=== PATIENT | male | born 1960 | race Two or more races ===

== ENCOUNTER 2017-03-17 21:01 | Emergency (ER) | payer MEDICARE, MEDICAID ==
[~2017-03-17] VITALS: Ht 170.2 cm; Wt 59.0 kg
[2017-03-18 02:47] LABS: Urine Bacteria None Seen /hpf (None Seen); Urine WBC None Seen /hpf (0 - 3)
[2017-03-18 03:02] LABS: Basophils # (auto) 0.1 uL; Basophils % (auto) 0.7 % (0.0-2.0); Eosinophils # (auto) 0.3 uL; Eosinophils % (auto) 2.4 % (0.0-7.0); Hemoglobin 16.6 g/dL (13.5-17.5); Lymphocytes # (auto) 2.6 uL; Lymphocytes % (auto) 24.2 % (10.0-50.0); Mean Corpuscular Hemoglobin 33.9 pg (28.0-32.0); Mean Corpuscular Hgb Conc. 35.4 g/dL (32.0-36.0); Mean Corpuscular Volume 95.8 fL (80.0-100.0); Monocytes # (auto) 1.1 uL; Monocytes % (auto) 10.2 % (0.0-12.0); Neutrophils # (auto) 6.6 uL; Neutrophils % (auto) 62.5 % (37.0-80.0); Nucleated Red Blood Cells % 0.1 %; Platelet Count (auto) 241 10^3/uL (140-450); Red Cell Distribution Width 12.6 % (11.8-14.3); White Blood Cell 10.6 10^3/uL (4.4-10.8)
[2017-03-18 03:23] LABS: Albumin 2.9 g/dL (3.4-5.0); BUN/Creatinine Ratio 19.2; Calcium 8.2 mg/dL (8.5-10.1)
[2017-03-18 03:25] LABS: Potassium 2.8 mmol/L (3.5-5.1)
[2017-03-18 03:27] LABS: Bilirubin, Total 1.3 mg/dL (0.2-1.0); Total Protein 9.5 g/dL (6.4-8.2)
[2017-03-18 04:20] LABS: Urine Specific Gravity 1.005 (1.001-1.035)
[2017-03-18 04:21] LABS: Urine Blood Trace /uL (Negative)
[2017-03-18 04:28] LABS: Urine Mucus FEW (None Seen)
[2017-03-18] MEDS ORDERED: METOCLOPRAMIDE HCL 5MG/ml INJ 2ml VIAL IV ONE (08:30)
[2017-03-18] MEDS ORDERED: KETOROLAC TROMETH 30 MG/ML 1ML VIAL IV ONE (08:30)
[2017-03-18] MEDS ORDERED: POTASSIUM CHL 10% (20 MEQ/15ML) 15ml ORAL SOLN PO ONE (09:00)
[2017-03-18 09:50] VITALS: BP 125/75
== END 2017-03-18 10:03 | disposition home or self-care (01) ==
LOC: ER 21:01 → EDBD 21:01 → ER 03-18 09:58
DX: S20.212A Contusion of left front wall of thorax, initial encounter (principal); R74.8 Abnormal levels of other serum enzymes; K76.0 Fatty (change of) liver, not elsewhere classified; E87.6 Hypokalemia; E44.0 Moderate protein-calorie malnutrition; J92.0 Pleural plaque with presence of asbestos; Z77.090 Contact with and (suspected) exposure to asbestos; F17.210 Nicotine dependence, cigarettes, uncomplicated
CPT/HCPCS: 36415; 71046; 71101; 74176; 80053; 81001; 85025; 96374; 96375; 99285; J1885; J2765

== ENCOUNTER 2018-01-26 14:17 | Emergency (ER) | payer MEDICAID, MEDICARE ==
[~2018-01-26] VITALS: Ht 172.7 cm; Wt 59.0 kg
[2018-01-26] MEDS ORDERED: SODIUM CHLORIDE 0.9% 1,000 ML IV ONE ×2 (14:48)
[2018-01-26] MEDS ORDERED: THIAMINE 100mg/ml INJ (200mg/2ml VIAL) IV ONE (15:00)
[2018-01-26] MEDS ORDERED: ONDANSETRON HCL 4 MG/2 ML VIAL IV ONE (15:00)
[2018-01-26 15:27] LABS: Eosinophils # (auto) 0.1 uL; White Blood Cell 8.3 10^3/uL (4.4-10.8)
[2018-01-26 15:29] LABS: Basophils # (auto) 0.1 uL; Basophils % (auto) 0.6 % (0.0-2.0); Eosinophils % (auto) 1.3 % (0.0-7.0); Hematocrit 51.5 % (41.0-53.0); Hemoglobin 18.6 g/dL (13.5-17.5); Lymphocytes # (auto) 1.3 uL; Mean Corpuscular Hemoglobin 34.5 pg (28.0-32.0); Mean Corpuscular Volume 95.7 fL (80.0-100.0); Monocytes # (auto) 1.1 uL; Monocytes % (auto) 13.4 % (0.0-12.0); Neutrophils # (auto) 5.7 uL; Neutrophils % (auto) 68.7 % (37.0-80.0); Nucleated Red Blood Cells % 0.3 %; Platelet Count (auto) 264 10^3/uL (140-450); Red Blood Cells 5.38 10^6/uL (4.5-5.90); Red Cell Distribution Width 12.4 % (11.8-14.3)
[2018-01-26 15:43] LABS: Albumin 3.1 g/dL (3.4-5.0); Anion Gap 11 (5-15); Blood Urea Nitrogen 4 mg/dL (7-18); Calcium 8.5 mg/dL (8.5-10.1); Carbon Dioxide 21 mmol/L (21-32); Chloride 98 mmol/L (98-107); Glucose 113 mg/dL (74-106); Potassium 3.6 mmol/L (3.5-5.1); Sodium 130 mmol/L (136-145)
[2018-01-26 15:49] LABS: Alanine Aminotransferase 109 U/L (16-61); Alkaline Phosphatase 79 U/L (45-117); Aspartate Aminotransferase 189 U/L (15-37); BUN/Creatinine Ratio 7.7; Bilirubin, Total 0.6 mg/dL (0.2-1.0); GFR African American 211 mL/min; GFR Non-African American 174 mL/min; Total Protein 9.4 g/dL (6.4-8.2)
[2018-01-26 15:59] LABS: Urine WBC None Seen /hpf (0 - 3)
[2018-01-26 16:11] LABS: INR 0.98 (0.9-1.15); Partial Thromboplastin Time 30.5 sec (23.78-33.04); Prothrombin Time 10.5 sec (9.27-12.13)
[2018-01-26 16:24] LABS: Urine Bacteria NONE SEEN /hpf (None Seen); Urine Blood Negative /uL (Negative); Urine Specific Gravity 1.003 (1.001-1.035)
[2018-01-26 16:42] VITALS: BP 152/91
== END 2018-01-26 16:54 | disposition home or self-care (01) ==
LOC: EDBD 14:17 → ER 14:29
DX: J40 Bronchitis, not specified as acute or chronic (principal); F10.129 Alcohol abuse with intoxication, unspecified; R11.2 Nausea with vomiting, unspecified; F17.210 Nicotine dependence, cigarettes, uncomplicated
CPT/HCPCS: 36415; 71045; 80053; 81001; 83880; 84484; 85025; 85610; 85730; 94761; 96361; 96374; 96375; 99284; J2405; J3411

== ENCOUNTER 2020-07-07 19:54 | Emergency (ER) | payer MEDICARE ==
[~2020-07-07] VITALS: Ht 177.8 cm; Wt 77.1 kg
[2020-07-07] MEDS ORDERED: ASPirin 81 mg TAB PO ONE (20:15)
[2020-07-07 20:53] LABS: Basophils # (auto) 0.1 10 ^3/uL (0-0.2); Eosinophils # (auto) 0.3 10 ^3/uL (0-0.8); Eosinophils % (auto) 3.9 % (0.0-7.0); Hematocrit 50.1 % (41.0-53.0); Hemoglobin 17.5 g/dL (13.5-17.5); Lymphocytes # (auto) 2.8 10 ^3/uL (0.4-5.4); Lymphocytes % (auto) 33.1 % (10.0-50.0); Mean Corpuscular Hemoglobin 33.5 pg (28.0-32.0); Mean Corpuscular Hgb Conc. 34.9 g/dL (32.0-36.0); Mean Corpuscular Volume 96.1 fL (80.0-100.0); Monocytes # (auto) 0.8 10 ^3/uL (0-1.3); Neutrophils # (auto) 4.4 10 ^3/uL (1.6-8.6); Nucleated Red Blood Cells % 0.3 %; Platelet Count (auto) 274 10^3/uL (140-450); Red Blood Cells 5.21 10^6/uL (4.5-5.90); Red Cell Distribution Width 13.2 % (11.8-14.3); White Blood Cell 8.4 10^3/uL (4.4-10.8)
[2020-07-07 21:07] LABS: INR 0.98 (0.9-1.15); Partial Thromboplastin Time 28.1 sec (23.0-31.2)
[2020-07-07 21:08] LABS: Albumin 3.4 g/dL (3.4-5.0); Anion Gap 7 (5-15); Blood Urea Nitrogen 3 mg/dL (7-18); Calcium 8.9 mg/dL (8.5-10.1); Carbon Dioxide 28 mmol/L (21-32); Chloride 99 mmol/L (98-107); Glucose 96 mg/dL (74-106); Potassium 4.2 mmol/L (3.5-5.1); Sodium 134 mmol/L (136-145)
[2020-07-07 21:10] LABS: GFR African American 184 mL/min; GFR Non-African American 152 mL/min
[2020-07-07 21:17] LABS: Alanine Aminotransferase 84 U/L (16-61); Alkaline Phosphatase 78 U/L (45-117); Aspartate Aminotransferase 106 U/L (15-37); Bilirubin, Total 0.5 mg/dL (0.2-1.0); Total Protein 9.3 g/dL (6.4-8.2)
[2020-07-07 21:22] LABS: BUN/Creatinine Ratio 5.2
[2020-07-07] MEDS ORDERED: AZITHROMYCIN 500MG/ 250ML 250 ML IV ONE (22:00)
[2020-07-07] MEDS ORDERED: SODIUM CHLORIDE 0.9% 1,000 ML IV ONE (22:00)
[2020-07-07 22:42] LABS: Urine Bacteria NONE SEEN /hpf (None Seen); Urine Blood Negative /uL (Negative); Urine Specific Gravity 1.002 (1.001-1.035); Urine WBC <1 /hpf (0 - 3)
[2020-07-07 22:48] LABS: Amphetamine Screen, Urine NEGATIVE (NEGATIVE); Barbiturate Scree,Urine NEGATIVE (NEGATIVE); Benzodiazephine Screen, Urine NEGATIVE (NEGATIVE); Cannabinoid Screen, Urine NEGATIVE (NEGATIVE); Cocaine Screen, Urine NEGATIVE (NEGATIVE); Opiate Scree,Urine NEGATIVE (NEGATIVE); Phencyclidine Screen, Urine NEGATIVE (NEGATIVE)
[2020-07-07 23:05] VITALS: BP 110/69
[2020-07-08] MEDS ORDERED: ALBUTEROL SULF 2.5 MG/0.5ML(0.5%) NEB SOLN NEB ONE (00:30)
[2020-07-08] MEDS ORDERED: IPRATROPIUM BROM 0.5 MG/2.5ML INH SOL NEB ONE (00:30)
== END 2020-07-08 01:04 | disposition still patient (30) ==
LOC: ER 19:56
DX: R07.89 Other chest pain (principal); F17.210 Nicotine dependence, cigarettes, uncomplicated; F10.10 Alcohol abuse, uncomplicated; Z20.822 Contact with and (suspected) exposure to COVID-19; Y90.8 Blood alcohol level of 240 mg/100 ml or more
CPT/HCPCS: 36415; 71045; 80053; 80307; 80320; 81001; 83880; 84484; 85025; 85379; 85610; 85730; 87426; 93005; 94640; 96365; 99285; J0456; J7644

== ENCOUNTER 2020-08-25 19:43 | Inpatient (IN) | payer MEDICARE ==
[~2020-08-25] VITALS: Ht 177.8 cm; Wt 59.9 kg
[2020-08-25 20:39] LABS: Urine WBC None Seen /hpf (0 - 3)
[2020-08-25 20:53] LABS: Urine Bacteria NONE SEEN /hpf (None Seen); Urine Blood Negative /uL (Negative); Urine Specific Gravity 1.002 (1.001-1.035)
[2020-08-25 21:05] LABS: Alanine Aminotransferase 115 U/L (16-61); Albumin 3.4 g/dL (3.4-5.0); Anion Gap 11 (5-15); Aspartate Aminotransferase 134 U/L (15-37); Blood Urea Nitrogen 3 mg/dL (7-18); Calcium 8.7 mg/dL (8.5-10.1); Carbon Dioxide 26 mmol/L (21-32); Chloride 93 mmol/L (98-107); GFR African American 177 mL/min; GFR Non-African American 146 mL/min; Glucose 99 mg/dL (74-106); Potassium 3.4 mmol/L (3.5-5.1); Sodium 130 mmol/L (136-145)
[2020-08-25 21:10] LABS: Alkaline Phosphatase 79 U/L (45-117); Bilirubin, Total 0.8 mg/dL (0.2-1.0); Total Protein 9.4 g/dL (6.4-8.2)
[2020-08-25 21:11] LABS: Basophils # (auto) 0.1 10 ^3/uL (0-0.2); Basophils % (auto) 1.3 % (0.0-2.0); Eosinophils # (auto) 0.4 10 ^3/uL (0-0.8); Eosinophils % (auto) 5.4 % (0.0-7.0); Hematocrit 46.1 % (41.0-53.0); Hemoglobin 16.4 g/dL (13.5-17.5); Lymphocytes # (auto) 2.8 10 ^3/uL (0.4-5.4); Lymphocytes % (auto) 40.8 % (10.0-50.0); Mean Corpuscular Hemoglobin 33.8 pg (28.0-32.0); Mean Corpuscular Hgb Conc. 35.5 g/dL (32.0-36.0); Mean Corpuscular Volume 95.2 fL (80.0-100.0); Monocytes # (auto) 0.7 10 ^3/uL (0-1.3); Monocytes % (auto) 10.4 % (0.0-12.0); Neutrophils # (auto) 2.9 10 ^3/uL (1.6-8.6); Neutrophils % (auto) 42.1 % (37.0-80.0); Nucleated Red Blood Cells % 0.4 %; Platelet Count (auto) 259 10^3/uL (140-450); Red Blood Cells 4.84 10^6/uL (4.5-5.90); Red Cell Distribution Width 12.5 % (11.8-14.3); White Blood Cell 6.9 10^3/uL (4.4-10.8)
[2020-08-25] MEDS ORDERED: AZITHROMYCIN 500MG/ 250ML 250 ML IV ONE (23:15)
[2020-08-25] MEDS ORDERED: cefTRIAXone 1GM/50ML D5W 50 ML IV ONE (23:15)
[2020-08-25] MEDS ORDERED: SODIUM CHLORIDE 0.9% 2,000 ML IV ONE (23:15)
[2020-08-26] MEDS ORDERED: ALBUTEROL SULF 2.5 MG/0.5ML(0.5%) NEB SOLN ONE (00:27)
[2020-08-26] MEDS ORDERED: IPRATROPIUM BROM 0.5 MG/2.5ML INH SOL ONE (00:27)
[2020-08-26] MEDS ORDERED: ALBUTEROL SULF 2.5 MG/0.5ML(0.5%) NEB SOLN NEB ONE (00:30)
[2020-08-26] MEDS ORDERED: IPRATROPIUM BROM 0.5 MG/2.5ML INH SOL NEB ONE (00:30)
[2020-08-26] MEDS ORDERED: methylPREDNISolone SOD SUCC 125 MG/2 ML VL IV ONE (00:30)
[2020-08-26] MEDS ORDERED: NITROGLYCERIN 0.4 MG SL TAB SL PRN (04:15)
[2020-08-26] MEDS ORDERED: MORPHINE SULF INJ 2 MG/ML SYRINGE 1ML IV PRN (04:15)
[2020-08-26] MEDS ORDERED: ALBUTEROL SULF 2.5 MG/0.5ML(0.5%) NEB SOLN NEB PRN (04:15)
[2020-08-26] MEDS ORDERED: POTASSIUM CHL 20 Meq TABLET PO ONE (04:15)
[2020-08-26] MEDS ORDERED: ACETAMINOPHEN 325 MG TAB PO PRN (04:15)
[2020-08-26] MEDS ORDERED: TEMAZEPAM 15 MG CAP PO PRN (04:15)
[2020-08-26] MEDS ORDERED: ONDANSETRON HCL 4 MG/2 ML VIAL IV PRN (04:15)
[2020-08-26 05:25] VITALS: BP 159/83
[2020-08-26] MEDS ORDERED: DexAMETHasone SOD PHOS 10MG/1ML VIAL INJ IV SCH (10:00)
[2020-08-26] MEDS ORDERED: ASCORBIC ACID 500 MG TAB PO SCH (10:00)
[2020-08-26] MEDS ORDERED: ZINC SULFATE 220mg CAP or TAB PO SCH (10:00)
[2020-08-26] MEDS: cefTRIAXone 1GM/50ML D5W 50 ML IV SCH (10:20)
[2020-08-26] MEDS: AZITHROMYCIN 500MG/ 250ML 250 ML IV SCH (10:21)
[2020-08-26] MEDS: ENOXAPARIN SOD 40 MG/0.4 ML SYRINGE SC SCH (10:23)
[2020-08-26 12:53] LABS: Albumin 3.6 g/dL (3.4-5.0); Calcium 8.5 mg/dL (8.5-10.1); Potassium 3.8 mmol/L (3.5-5.1)
[2020-08-26 13:02] LABS: BUN/Creatinine Ratio 6.7
[2020-08-26 17:00] VITALS: BP 143/82
[2020-08-26 22:20] VITALS: BP 137/72
[2020-08-26] MEDS ORDERED: HYDROcodone-ACET 5/325MG TAB PO ONE (23:45)
[2020-08-27 04:50] VITALS: BP 126/65
[2020-08-27 05:57] LABS: Basophils # (auto) 0 10 ^3/uL (0-0.2); Eosinophils # (auto) 0 10 ^3/uL (0-0.8); Mean Corpuscular Hemoglobin 34.4 pg (28.0-32.0)
[2020-08-27 06:00] LABS: Basophils % (auto) 0.2 % (0.0-2.0); Hematocrit 46.4 % (41.0-53.0); Lymphocytes # (auto) 1.3 10 ^3/uL (0.4-5.4); Lymphocytes % (auto) 12.6 % (10.0-50.0); Mean Corpuscular Volume 94.1 fL (80.0-100.0); Monocytes % (auto) 9.1 % (0.0-12.0); Neutrophils # (auto) 8.3 10 ^3/uL (1.6-8.6); Neutrophils % (auto) 78.1 % (37.0-80.0); Nucleated Red Blood Cells % 0.3 %; Platelet Count (auto) 258 10^3/uL (140-450); Red Blood Cells 4.93 10^6/uL (4.5-5.90); Red Cell Distribution Width 12.6 % (11.8-14.3); White Blood Cell 10.6 10^3/uL (4.4-10.8)
[2020-08-27 06:06] LABS: Mean Corpuscular Hgb Conc. 36.6 g/dL (32.0-36.0)
[2020-08-27 06:11] LABS: Calcium 8.4 mg/dL (8.5-10.1)
[2020-08-27 06:14] LABS: BUN/Creatinine Ratio 18.2
[2020-08-27 06:16] LABS: Potassium 2.9 mmol/L (3.5-5.1)
[2020-08-27] MEDS ORDERED: POTASSIUM CHL 20 Meq TABLET PO ONE ×2 (06:45→09:30)
[2020-08-27 09:00] VITALS: BP 133/72
[2020-08-27] MEDS: cefTRIAXone 1GM/50ML D5W 50 ML IV SCH (09:00)
[2020-08-27] MEDS: ENOXAPARIN SOD 40 MG/0.4 ML SYRINGE SC SCH (09:14)
[2020-08-27] MEDS: AZITHROMYCIN 500MG/ 250ML 250 ML IV SCH (10:00)
[2020-08-27 17:00] VITALS: BP 116/65
[2020-08-27 21:58] VITALS: BP 109/64
[2020-08-28 05:00] VITALS: BP 133/72
[2020-08-28 08:00] VITALS: BP 136/75
[2020-08-28] MEDS: cefTRIAXone 1GM/50ML D5W 50 ML IV SCH (09:19)
[2020-08-28] MEDS: ENOXAPARIN SOD 40 MG/0.4 ML SYRINGE SC SCH (09:20)
[2020-08-28] MEDS: AZITHROMYCIN 500MG/ 250ML 250 ML IV SCH (10:00)
[2020-08-28 12:00] VITALS: BP 121/61
[2020-08-28 14:27] LABS: BUN/Creatinine Ratio 22.9; Calcium 8.6 mg/dL (8.5-10.1); Potassium 3.4 mmol/L (3.5-5.1)
[2020-08-28 16:00] VITALS: BP 134/81
[2020-08-29 00:18] VITALS: BP 145/75
[2020-08-29 05:21] VITALS: BP 121/68
[2020-08-29] MEDS: cefTRIAXone 1GM/50ML D5W 50 ML IV SCH (09:06)
[2020-08-29] MEDS: ENOXAPARIN SOD 40 MG/0.4 ML SYRINGE SC SCH (09:06)
[2020-08-29 09:08] VITALS: BP 143/77
[2020-08-29] MEDS: AZITHROMYCIN 500MG/ 250ML 250 ML IV SCH (09:46)
[2020-08-29 13:00] VITALS: BP 148/81
== END 2020-08-29 13:00 | disposition left against medical advice (07) | DRG 177 ==
LOC: ER 19:48 → TELE 08-26 04:12 → TELE-CENTR 08-26 15:04
PROVIDERS: ADMIT Nurse Practitioner; ATTEND Internal Medicine Nephrology
DX: J15.6 Pneumonia due to other Gram-negative bacteria (principal); J96.01 Acute respiratory failure with hypoxia; E87.1 Hypo-osmolality and hyponatremia; E87.6 Hypokalemia; F17.210 Nicotine dependence, cigarettes, uncomplicated; J43.2 Centrilobular emphysema; Z20.822 Contact with and (suspected) exposure to COVID-19; Z53.29 Procedure and treatment not carried out because of patient's decision for other reasons; K76.0 Fatty (change of) liver, not elsewhere classified; J92.0 Pleural plaque with presence of asbestos; F10.10 Alcohol abuse, uncomplicated
CPT/HCPCS: 36415; 71045; 71250; 76705; 80048; 80053; 81001; 82728; 84484; 85025; 85049; 85379; 87426; 87493; 93005; 93306; 94640; 96361; 96365; 96367; G0378; J0696; J1100

== ENCOUNTER 2020-11-28 21:47 | Inpatient (IN) | payer MEDICARE ==
[~2020-11-28] VITALS: Ht 177.8 cm; Wt 57.4 kg
[2020-11-28] MEDS ORDERED: MORPHINE SULFATE 4 MG/ML SYR/VIAL IV ONE (22:30)
[2020-11-28] MEDS ORDERED: ceFAZolin 1GM/50ML 50 ML IV ONE (22:30)
[2020-11-28] MEDS ORDERED: TETANUS-DIPTH-ACEL PERTUSSIS 0.5ML SYR Tdap IM ONE (23:00)
[2020-11-28 23:03] LABS: Basophils # (auto) 0.1 10 ^3/uL (0-0.2); Basophils % (auto) 1.4 % (0.0-2.0); Eosinophils # (auto) 0.3 10 ^3/uL (0-0.8); Eosinophils % (auto) 3.3 % (0.0-7.0); Hemoglobin 15.5 g/dL (13.5-17.5); Lymphocytes % (auto) 23.4 % (10.0-50.0); Mean Corpuscular Hemoglobin 33.6 pg (28.0-32.0); Mean Corpuscular Hgb Conc. 34.5 g/dL (32.0-36.0); Mean Corpuscular Volume 97.3 fL (80.0-100.0); Monocytes # (auto) 0.7 10 ^3/uL (0-1.3); Monocytes % (auto) 7.8 % (0.0-12.0); Neutrophils # (auto) 5.5 10 ^3/uL (1.6-8.6); Neutrophils % (auto) 64.1 % (37.0-80.0); Nucleated Red Blood Cells % 0.1 %; Red Blood Cells 4.63 10^6/uL (4.5-5.90); Red Cell Distribution Width 12.5 % (11.8-14.3); White Blood Cell 8.6 10^3/uL (4.4-10.8)
[2020-11-28 23:27] LABS: INR 0.99 (0.9-1.15); Partial Thromboplastin Time 27.2 sec (23.6-33.0)
[2020-11-28 23:35] LABS: Albumin 3.2 g/dL (3.4-5.0); BUN/Creatinine Ratio 10.5; Calcium 8.8 mg/dL (8.5-10.1); Potassium 3.4 mmol/L (3.5-5.1)
[2020-11-28 23:38] LABS: Bilirubin, Total 0.6 mg/dL (0.2-1.0); Total Protein 8.4 g/dL (6.4-8.2)
[2020-11-28] MEDS ORDERED: BACITRACIN INJ 50000 UNIT VIAL TOP ONE (23:45)
[2020-11-29] MEDS ORDERED: ACETAMINOPHEN 325 MG TAB PO PRN
[2020-11-29] MEDS ORDERED: ONDANSETRON HCL 4 MG/2 ML VIAL IV PRN
[2020-11-29] MEDS ORDERED: NITROGLYCERIN 0.4 MG SL TAB SL PRN
[2020-11-29] MEDS ORDERED: POTASSIUM CHL 20 Meq TABLET PO ONE
[2020-11-29] MEDS ORDERED: DOCUSATE SOD 100 MG CAP PO PRN
[2020-11-29] MEDS ORDERED: MORPHINE SULFATE INJECTION 2 MG/ML SYRG IV PRN
[2020-11-29] MEDS: D5W/SOD CHLO 0.9% 1,000 ML IV SCH ×2 (02:34→13:20)
[2020-11-29] MEDS: MORPHINE SULFATE 4 MG/ML SYR/VIAL IV PRN ×3 (02:35→16:27)
[2020-11-29 04:34] LABS: Urine Bacteria NONE SEEN /hpf (None Seen); Urine Blood Negative /uL (Negative); Urine Specific Gravity 1.004 (1.001-1.035); Urine WBC <1 /hpf (0 - 3)
[2020-11-29 06:17] LABS: Potassium 3.3 mmol/L (3.5-5.1)
[2020-11-29 06:21] LABS: Basophils # (auto) 0.1 10 ^3/uL (0-0.2); Eosinophils # (auto) 0.1 10 ^3/uL (0-0.8); Eosinophils % (auto) 1.7 % (0.0-7.0); Mean Corpuscular Hgb Conc. 35.9 g/dL (32.0-36.0); Neutrophils # (auto) 5.5 10 ^3/uL (1.6-8.6)
[2020-11-29 06:24] LABS: Basophils % (auto) 0.9 % (0.0-2.0); Hematocrit 40.4 % (41.0-53.0); Hemoglobin 14.5 g/dL (13.5-17.5); Lymphocytes # (auto) 1.7 10 ^3/uL (0.4-5.4); Lymphocytes % (auto) 21.4 % (10.0-50.0); Mean Corpuscular Hemoglobin 35.7 pg (28.0-32.0); Mean Corpuscular Volume 99.4 fL (80.0-100.0); Monocytes # (auto) 0.7 10 ^3/uL (0-1.3); Monocytes % (auto) 8.6 % (0.0-12.0); Neutrophils % (auto) 67.4 % (37.0-80.0); Red Blood Cells 4.06 10^6/uL (4.5-5.90); Red Cell Distribution Width 12.4 % (11.8-14.3); White Blood Cell 8.2 10^3/uL (4.4-10.8)
[2020-11-29 06:30] LABS: Albumin 3.1 g/dL (3.4-5.0); BUN/Creatinine Ratio 10.9; Bilirubin, Total 0.4 mg/dL (0.2-1.0); Calcium 8.5 mg/dL (8.5-10.1); Total Protein 7.9 g/dL (6.4-8.2)
[2020-11-29] MEDS: ceFAZolin 1GM/50ML 50 ML IV SCH ×3 (06:44→21:26)
[2020-11-29] MEDS: FAMOTIDINE (10MG/ML) 2ML VL IV SCH (10:00)
[2020-11-29] MEDS: ZINC SULFATE 220mg CAP or TAB PO SCH (10:00)
[2020-11-29] MEDS: ASCORBIC ACID 500 MG TAB PO SCH ×2 (10:00→21:26)
[2020-11-29] MEDS: ENOXAPARIN SOD 40 MG/0.4 ML SYRINGE SC SCH (10:00)
[2020-11-29] MEDS ORDERED: MULTIPLE VITAMIN TAB PO SCH (10:00)
[2020-11-29] MEDS ORDERED: chlordiazePOXIDE HCL 25 MG CAP PO PRN (13:00)
[2020-11-29 15:35] VITALS: BP 153/82
[2020-11-29] MEDS: HYDROcodone-ACET 5/325MG TAB PO PRN (21:03)
[2020-11-29 22:00] VITALS: BP 148/76
[2020-11-30] MEDS: D5W/SOD CHLO 0.9% 1,000 ML IV SCH ×2 (04:09→16:00)
[2020-11-30 05:00] VITALS: BP 139/74
[2020-11-30] MEDS: ceFAZolin 1GM/50ML 50 ML IV SCH ×3 (06:37→22:07)
[2020-11-30 09:00] VITALS: BP 136/76
[2020-11-30] MEDS: ASCORBIC ACID 500 MG TAB PO SCH ×2 (10:00→22:07)
[2020-11-30] MEDS: ZINC SULFATE 220mg CAP or TAB PO SCH (10:00)
[2020-11-30] MEDS: ENOXAPARIN SOD 40 MG/0.4 ML SYRINGE SC SCH (10:00)
[2020-11-30] MEDS: FAMOTIDINE (10MG/ML) 2ML VL IV SCH (10:11)
[2020-11-30] MEDS ORDERED: BUPIVACAINE W/ EPINEPH 0.25% INJ 50ML MDV ONE (12:21)
[2020-11-30] MEDS ORDERED: TETRACAINE 1% INJ 2 ML VIAL IJ ONE (12:21)
[2020-11-30] MEDS ORDERED: fentaNYL CITRATE 100 MCG/2 ML VL ONE (12:32)
[2020-11-30] MEDS ORDERED: MIDAZOLAM HCL 2MG/2ML 2ml VIAL (1mg/ml) ONE (12:32)
[2020-11-30] MEDS ORDERED: ceFAZolin 1GM/50ML 100 ML IV ONE (12:35)
[2020-11-30] MEDS ORDERED: DexAMETHasone SOD PHOS 10MG/1ML VIAL INJ ONE (13:15)
[2020-11-30] MEDS ORDERED: PROPOFOL 10 MG/ML 20 ML IV ONE (13:15)
[2020-11-30] MEDS ORDERED: ceFAZolin 1GM VL ONE (14:08)
[2020-11-30] MEDS ORDERED: MORPHINE SULFATE 4 MG/ML SYR/VIAL IV PRN (15:00)
[2020-11-30] MEDS ORDERED: MIDAZOLAM HCL 2MG/2ML 2ml VIAL (1mg/ml) IV PRN (15:00)
[2020-11-30] MEDS ORDERED: LABETALOL HCL 5 MG/ML 4ML SYRINGE IV PRN (15:00)
[2020-11-30] MEDS ORDERED: ONDANSETRON HCL 4 MG/2 ML VIAL IV PRN (15:00)
[2020-11-30] MEDS ORDERED: ACCU-CHEK COMFORT CURVE STRIP VI ONE (15:00)
[2020-11-30] MEDS ORDERED: ePHEDrine SULFATE 50 MG/ML AMP IV PRN (15:00)
[2020-11-30] MEDS ORDERED: HYDROmorphone HCL 2 MG/ML VL IV PRN (15:00)
[2020-11-30] MEDS: FOLIC ACID 1 MG, MULTIPLE VITAMIN 10 ML, MAGNESIUM SULF SDV 50% 8 MEQ, THIAMINE INJ 100... INJ SCH ×5 (16:04)
[2020-11-30 16:48] VITALS: BP 127/74
[2020-11-30] MEDS: MORPHINE SULFATE 4 MG/ML SYR/VIAL IV PRN ×2 (18:21→23:53)
[2020-11-30] MEDS: HYDROcodone-ACET 5/325MG TAB PO PRN (19:58)
[2020-11-30 22:00] VITALS: BP 139/71
[2020-12-01 05:00] VITALS: BP 143/68
[2020-12-01] MEDS: ceFAZolin 1GM/50ML 50 ML IV SCH ×2 (05:27→14:00)
[2020-12-01] MEDS: D5W/SOD CHLO 0.9% 1,000 ML IV SCH (06:56)
[2020-12-01] MEDS ORDERED: HYDROmorphone HCL 2 MG/ML VL IV PRN (08:15)
[2020-12-01] MEDS: MORPHINE SULFATE 4 MG/ML SYR/VIAL IV PRN (08:26)
[2020-12-01 09:00] VITALS: BP 129/72
[2020-12-01] MEDS: FAMOTIDINE (10MG/ML) 2ML VL IV SCH (10:11)
[2020-12-01] MEDS: ASCORBIC ACID 500 MG TAB PO SCH (10:12)
[2020-12-01] MEDS: ZINC SULFATE 220mg CAP or TAB PO SCH (10:12)
[2020-12-01] MEDS: ENOXAPARIN SOD 40 MG/0.4 ML SYRINGE SC SCH (10:13)
[2020-12-01 13:00] VITALS: BP 138/77
[2020-12-01] MEDS: FOLIC ACID 1 MG, MULTIPLE VITAMIN 10 ML, MAGNESIUM SULF SDV 50% 8 MEQ, THIAMINE INJ 100... INJ SCH ×5 (13:30)
== END 2020-12-01 17:20 | disposition left against medical advice (07) | DRG 493 ==
LOC: EDBD 21:47 → ER 21:47 → OVERFLOW 23:51 → WEST WING 11-29 15:44
PROVIDERS: ADMIT Nurse Practitioner Family; ATTEND Family Medicine
PROC: B41F1ZZ Fluoroscopy of Right Lower Extremity Arteries using Low Osmolar Contrast (ICD-10-PCS; 2020-11-30)
PROC: 0QSG04Z Reposition Right Tibia with Internal Fixation Device, Open Approach (ICD-10-PCS; principal; 2020-11-30 12:48)
DX: S82.301A Unspecified fracture of lower end of right tibia, initial encounter for closed fracture (principal); F10.139 Alcohol abuse with withdrawal, unspecified; F17.210 Nicotine dependence, cigarettes, uncomplicated; Z20.822 Contact with and (suspected) exposure to COVID-19; S82.831A Other fracture of upper and lower end of right fibula, initial encounter for closed fracture; W18.39XA Other fall on same level, initial encounter; Y93.89 Activity, other specified; Y92.89 Other specified places as the place of occurrence of the external cause; Y99.8 Other external cause status; Z53.29 Procedure and treatment not carried out because of patient's decision for other reasons; Y90.0 Blood alcohol level of less than 20 mg/100 ml
CPT/HCPCS: 36415; 71045; 73590; 73610; 76000; 80053; 80320; 81001; 82962; 85025; 85610; 85730; 86850; 86900; 86901; 87426; 90471; 90715; 93005; 96365; 96372; 96375; 97163; G0378; J0690; J1100; J2250; J2405; J2704; J3490; J7042

== ENCOUNTER 2022-09-09 21:53 | Inpatient (IN) | payer MEDICARE ==
[~2022-09-09] VITALS: Ht 172.7 cm; Wt 59.6 kg
[2022-09-09] MEDS ORDERED: IPRATROPIUM BROM 0.5 MG/2.5ML INH SOL NEB ONE (22:15)
[2022-09-09] MEDS ORDERED: ALBUTEROL SULF 2.5 MG/0.5ML(0.5%) NEB SOLN NEB ONE (22:15)
[2022-09-09 22:34] LABS: Basophils # (auto) 0.1 10 ^3/uL (0-0.2); Eosinophils # (auto) 0.2 10 ^3/uL (0-0.8); Hemoglobin 16.4 g/dL (13.5-17.5); Lymphocytes # (auto) 2.1 10 ^3/uL (0.4-5.4)
[2022-09-09 22:36] LABS: Basophils % (auto) 0.9 % (0.0-2.0); Hematocrit 46.4 % (41.0-53.0); Lymphocytes % (auto) 22.7 % (10.0-50.0); Mean Corpuscular Hemoglobin 34.3 pg (28.0-32.0); Mean Corpuscular Hgb Conc. 35.5 g/dL (32.0-36.0); Mean Corpuscular Volume 96.9 fL (80.0-100.0); Monocytes # (auto) 0.7 10 ^3/uL (0-1.3); Monocytes % (auto) 7.7 % (0.0-12.0); Neutrophils # (auto) 6.1 10 ^3/uL (1.6-8.6); Neutrophils % (auto) 66.7 % (37.0-80.0); Nucleated Red Blood Cells % 0.2 %; Red Blood Cells 4.79 10^6/uL (4.5-5.90); Red Cell Distribution Width 13.1 % (11.8-14.3); White Blood Cell 9.1 10^3/uL (4.4-10.8)
[2022-09-09 22:42] LABS: BUN/Creatinine Ratio 4.8 (10.0-20.0); Calcium 8.8 mg/dL (8.5-10.1); Magnesium 1.9 mg/dL (1.6-2.6); Potassium 3.3 mmol/L (3.5-5.1)
[2022-09-09 22:44] LABS: Bilirubin, Total 0.9 mg/dL (0.2-1.0); Total Protein 8.8 g/dL (6.4-8.2)
[2022-09-09 23:08] LABS: Urine Bacteria NONE SEEN /hpf (None Seen); Urine Blood Negative /uL (Negative); Urine Specific Gravity 1.005 (1.001-1.035); Urine WBC <1 /hpf (0 - 3)
[2022-09-10] MEDS ORDERED: LIDOCAINE 1% HCL (LOCAL ANESTH.) INJ 20ML MDV ONE (04:08)
[2022-09-10] MEDS ORDERED: LIDOCAINE 1% HCL (LOCAL ANESTH.) INJ 20ML MDV IJ ONE (04:15)
[2022-09-10] MEDS ORDERED: POTASSIUM EFFERVESENT TAB 25 MEQ PO ONE (12:15)
[2022-09-10] MEDS ORDERED: NITROGLYCERIN 0.4 MG SL TAB SL PRN (12:15)
[2022-09-10] MEDS ORDERED: ACETAMINOPHEN 325 MG TAB PO PRN (12:15)
[2022-09-10] MEDS ORDERED: ONDANSETRON HCL 4 MG/2 ML VIAL IV PRN (12:15)
[2022-09-10] MEDS ORDERED: MORPHINE SULFATE INJ 2 MG/ml SYRG IV PRN (12:15)
[2022-09-10] MEDS: chlordiazePOXIDE HCL 25 MG CAP PO SCH ×2 (12:50→20:56)
[2022-09-10 12:58] LABS: INR 1.04 (0.9-1.15)
[2022-09-10] MEDS: DexAMETHasone SOD PHOS 4 MG/1ML SDV INJ IV SCH ×3 (14:10→23:43)
[2022-09-10] MEDS: IPRATROPIUM BROM 0.5 MG/2.5ML INH SOL NEB SCH ×3 (15:36→22:39)
[2022-09-10] MEDS: ALBUTEROL SULF 2.5 MG/0.5ML(0.5%) NEB SOLN NEB SCH ×3 (15:36→22:40)
[2022-09-10] MEDS ORDERED: LORazepam 2MG/ML-1ML VIAL IV PRN (20:15)
[2022-09-10] MEDS: FOLIC ACID 1 MG, MULTIPLE VITAMIN 10 ML, MAGNESIUM SULF SDV 50% 8 MEQ, THIAMINE INJ 100... INJ SCH ×5 (21:00)
[2022-09-10 21:49] VITALS: BP 120/74
[2022-09-10 22:00] VITALS: BP 120/74
[2022-09-10 22:17] VITALS: BP 120/74
[2022-09-10] MEDS: ATORVASTATIN 20 MG TAB PO SCH (22:34)
[2022-09-11] MEDS: ALBUTEROL SULF 2.5 MG/0.5ML(0.5%) NEB SOLN NEB SCH ×6 (02:18→21:58)
[2022-09-11] MEDS: IPRATROPIUM BROM 0.5 MG/2.5ML INH SOL NEB SCH ×6 (02:18→21:58)
[2022-09-11 03:00] VITALS: BP 120/74
[2022-09-11] MEDS: chlordiazePOXIDE HCL 25 MG CAP PO SCH ×3 (03:59→21:41)
[2022-09-11 04:52] VITALS: BP 112/68
[2022-09-11] MEDS: DexAMETHasone SOD PHOS 4 MG/1ML SDV INJ IV SCH ×3 (05:16→18:36)
[2022-09-11 09:00] VITALS: BP 115/65
[2022-09-11] MEDS: ASPirin 81 mg TAB PO SCH (10:02)
[2022-09-11] MEDS: ENOXAPARIN SOD 40 MG/0.4 ML SYRINGE SC SCH (10:04)
[2022-09-11] MEDS: NICOTINE 21MG/24 HR TOPICAL PATCH TD SCH (10:05)
[2022-09-11] MEDS: levoFLOXacin 500MG 100 ML IV SCH ×2 (10:06→14:11)
[2022-09-11 13:00] VITALS: BP 106/60
[2022-09-11] MEDS: FOLIC ACID 1 MG, MULTIPLE VITAMIN 10 ML, MAGNESIUM SULF SDV 50% 8 MEQ, THIAMINE INJ 100... INJ SCH ×5 (14:09)
[2022-09-11 17:00] VITALS: BP 101/58
[2022-09-11] MEDS: ATORVASTATIN 20 MG TAB PO SCH (21:41)
[2022-09-11 21:57] VITALS: BP_SYST 128; BP_SYST 132; BP_DIAS 56; BP_DIAS 69
[2022-09-12] MEDS: DexAMETHasone SOD PHOS 4 MG/1ML SDV INJ IV SCH ×5 (00:41→22:35)
[2022-09-12] MEDS: ALBUTEROL SULF 2.5 MG/0.5ML(0.5%) NEB SOLN NEB SCH ×6 (02:00→21:08)
[2022-09-12] MEDS: IPRATROPIUM BROM 0.5 MG/2.5ML INH SOL NEB SCH ×6 (02:00→21:08)
[2022-09-12 04:42] VITALS: BP 115/65
[2022-09-12 09:00] VITALS: BP 124/70
[2022-09-12] MEDS: ENOXAPARIN SOD 40 MG/0.4 ML SYRINGE SC SCH (09:26)
[2022-09-12] MEDS: chlordiazePOXIDE HCL 25 MG CAP PO SCH ×2 (09:27→21:27)
[2022-09-12] MEDS: NICOTINE 21MG/24 HR TOPICAL PATCH TD SCH (09:27)
[2022-09-12] MEDS: ASPirin 81 mg TAB PO SCH (09:27)
[2022-09-12] MEDS: levoFLOXacin 500MG 100 ML IV SCH (09:28)
[2022-09-12 13:00] VITALS: BP 114/65
[2022-09-12] MEDS: FOLIC ACID 1 MG, MULTIPLE VITAMIN 10 ML, MAGNESIUM SULF SDV 50% 8 MEQ, THIAMINE INJ 100... INJ SCH ×5 (13:24)
[2022-09-12 17:00] VITALS: BP 119/72
[2022-09-12] MEDS: ATORVASTATIN 20 MG TAB PO SCH (21:28)
[2022-09-12 22:00] VITALS: BP 110/64
[2022-09-12 22:52] VITALS: BP 110/64
[2022-09-13] MEDS: ALBUTEROL SULF 2.5 MG/0.5ML(0.5%) NEB SOLN NEB SCH ×4 (02:00→14:52)
[2022-09-13] MEDS: IPRATROPIUM BROM 0.5 MG/2.5ML INH SOL NEB SCH ×4 (02:00→14:52)
[2022-09-13 05:38] VITALS: BP 115/64
[2022-09-13] MEDS: DexAMETHasone SOD PHOS 4 MG/1ML SDV INJ IV SCH ×2 (06:00→12:20)
[2022-09-13] MEDS ORDERED: chlordiazePOXIDE HCL 25 MG CAP PO SCH (07:00)
[2022-09-13 08:40] VITALS: BP 104/48
[2022-09-13] MEDS: ENOXAPARIN SOD 40 MG/0.4 ML SYRINGE SC SCH (09:45)
[2022-09-13] MEDS: ASPirin 81 mg TAB PO SCH (09:45)
[2022-09-13] MEDS: levoFLOXacin 500MG 100 ML IV SCH (09:45)
[2022-09-13] MEDS: NICOTINE 21MG/24 HR TOPICAL PATCH TD SCH (09:46)
[2022-09-13 13:00] VITALS: BP 121/68
[2022-09-13] MEDS: FOLIC ACID 1 MG, MULTIPLE VITAMIN 10 ML, MAGNESIUM SULF SDV 50% 8 MEQ, THIAMINE INJ 100... INJ SCH ×5 (14:00)
[2022-09-13 16:43] VITALS: BP 129/72
== END 2022-09-13 17:30 | DRG 177 ==
LOC: ER 21:53 → TELE 09-10 12:22 → TELE-WESTW 09-10 21:33
PROVIDERS: ADMIT Nurse Practitioner Family; ATTEND Family Medicine
DX: J69.0 Pneumonitis due to inhalation of food and vomit (principal); J96.01 Acute respiratory failure with hypoxia; E87.1 Hypo-osmolality and hyponatremia; E44.1 Mild protein-calorie malnutrition; E87.6 Hypokalemia; K76.0 Fatty (change of) liver, not elsewhere classified; I10 Essential (primary) hypertension; E78.00 Pure hypercholesterolemia, unspecified; F10.129 Alcohol abuse with intoxication, unspecified; F17.210 Nicotine dependence, cigarettes, uncomplicated; Z60.2 Problems related to living alone; F41.9 Anxiety disorder, unspecified; J43.2 Centrilobular emphysema; R73.9 Hyperglycemia, unspecified; Z91.199 Patient's noncompliance with other medical treatment and regimen due to unspecified reason; Z68.20 Body mass index [BMI] 20.0-20.9, adult
CPT/HCPCS: 36415; 36600; 71045; 71250; 80053; 80320; 81001; 82805; 83735; 83880; 84484; 85025; 85379; 85610; 87426; 87804; 93005; 93306; 94640; 97116; 97163; 97530; G0378; J1100; J1956; J2001

== ENCOUNTER 2024-10-08 19:43 | Inpatient (IN) | payer MEDICARE, MEDICAID ==
[~2024-10-08] VITALS: Ht 170.2 cm; Wt 49.4 kg
--- NOTE | 2024-10-08 20:03 | ED.PDOC ---
GI ASSESSMENT HPI Comments 64-year-old male history of hypertension, COPD, anxiety, and alcohol abuse by ambulance with a chief complaint of right upper quadrant/left upper quadrant abdominal pain with the associated radiation to the chest, shortness of breath, productive cough, and nasal congestion. Patient states that his pain has been onset for the past 2 days with no alleviating factors at this time. Patient denies any nausea, vomiting, diarrhea, headache, back pain, flank pain, or any other associated symptoms, factors at this time. Chief Complaint: Abdominal Pain Time Seen by MD: 19:59 Primary Care Provider: LAURAK Reviewed Notes: Nurses Notes, Head Nurse Notes, Medications, Allergies Allergies: Coded Allergies: NO KNOWN ALLERGIES (Unverified , 08/25/20) Home Meds No Active Prescriptions or Reported Meds Information Source: Patient, Emergency Med Personnel Mode of Arrival: EMS Timing: Days Duration: Intermittent, Days Prehospital treatment: 12 Lead EKG, Accucheck, Mold Filler Quality: Aching Vomitus: None Stool: Normal Severity: Moderate Recent: None Recent Hx of: None Pain Location: RUQ, LUQ Modifying Factors: Exertion, Movement Associated sign and symptoms: None Vital Signs Vital Signs Date Time Temp Pulse Resp B/P (MAP) Pulse Ox O2 Delivery O2 Flow Rate FiO2 10/08/24 22:02 16 94 Room Air* 0 21 10/08/24 19:54 95 10/08/24 19:48 98.4 132/79 98.4 Physical Exam PHYSICAL EXAM: General: Awake, alert and oriented. No acute distress. Skin: Skin in warm, dry and intact. Appropriate color for ethnicity. HEENT: The head is normocephalic and atraumatic. Conjunctivae are clear without exudates or hemorrhage. Sclera is non-icteric. EOM are intact. No signs of nystagmus. Eyelids are normal in appearance without swelling or lesions. Oral mucosa is pink and moist Neck: The neck is supple with normal range of motion. No JVD. Cardiac: Heart rate and rhythm are normal. No murmurs, gallops, or rubs are auscultated. Respiratory: No signs of respiratory distress. Wheezes bilaterally Abdominal: Abdomen is soft,. Bowel sounds are present and normoactive in all four quadrants. Tenderness to palpitation to the right upper and left upper quadrant Extremities: Upper and lower extremities are atraumatic in appearance without deformity or edema. Neurological: The patient is awake, alert and oriented to person, place, and ti me with normal speech. Speech is clear. There is no facial asymmetry. Psychiatric: Appropriate mood and affect. Good judgement and insight. Review of Systems: REVIEW OF SYSTEMS: No fever, no chills, or fatigue HEENT: sore throat, no earache, congestion, no neck pain. Cardiac:. No palpitations. Positive chest pain Lungs: Cough, shortness of breath GI: No nausea, no vomiting, no diarrhea, no constipation, positive abdominal pain : No dysuria, frequency, or urgency. No hematuria. Musculoskeletal: No joint pain , no joint swelling, no extremity edema. Skin: No rash, no itching. Neuro: No headache, no dizziness, no weakness Past Medical History PAST MEDICAL HISTORY: Anxiety, COPD, HTN, Liver Surgical History: Denies all surgeries Family History Family History: Reviewed,noncontributory to illness Social History Smoker: Cigarettes, Greater Than 1 Pack/Day Alcohol: Heavy Drugs: Denies Drug Use Lives In: Home Was a procedure done? Was a procedure done?: No GI differential Dx Differential Diagnosis: Appendicitis, Angina/AL, Cholangitis, Cholecystitis, Constipation, Diverticular disease, Gastritis/PUD, Gastroenteritis, GI hemorrhage, Hernia, Pancreatitis, Trauma intraabdominal, Urinary Obstruction, UTI, Urolithiasis, Dehydration, Electrolyte Imbalance, Food Poisoning, Bacterial, Parasitic, Stress Ulcer, Kidney Stone X-Ray, Labs, Meds, VS Vital Signs Date Time Temp Pulse Resp B/P (MAP) Pulse Ox O2 Delivery O2 Flow Rate FiO2 10/08/24 22:02 16 94 Room Air* 0 21 10/08/24 19:54 95 10/08/24 19:48 98.4 88 20 132/79 96 98.4 Lab Test 10/08/24 21:30 10/08/24 20:15 Range/Units Troponin I High Sensitivity < 3 L < 3 L </=54 ng/L White Blood Count 8.1 4.4-10.8 10^3/uL Red Blood Count 4.74 4.5-5.90 10^6/uL Hemoglobin 16.4 13.5-17.5 g/dL Hematocrit 45.8 41.0-53.0 % Mean Corpuscular Volume 96.6 80.0-100.0 fL Mean Corpuscular Hemoglobin 34.5 H 28.0-32.0 pg Mean Corpuscular Hemoglobin Concent 35.7 32.0-36.0 g/dL Red Cell Distribution Width 13.0 11.8-14.3 % Platelet Count 292 140-450 10^3/uL Mean Platelet Volume 6.0 L 6.9-10.8 fL Neutrophils (%) (Auto) 53.0 37.0-80.0 % Lymphocytes (%) (Auto) 31.3 10.0-50.0 % Monocytes (%) (Auto) 9.5 0.0-12.0 % Eosinophils (%) (Auto) 5.2 0.0-7.0 % Basophils (%) (Auto) 1.0 0.0-2.0 % Neutrophils # (Auto) 4.3 1.6-8.6 10 ^3/uL Lymphocytes # (Auto) 2.5 0.4-5.4 10 ^3/uL Monocytes # (Auto) 0.8 0-1.3 10 ^3/uL Eosinophils # (Auto) 0.4 0-0.8 10 ^3/uL Basophils # (Auto) 0.1 0-0.2 10 ^3/uL Nucleated Red Blood Cells 0.2 % Sodium Level 131 L 136-145 mmol/L Potassium Level 4.0 3.5-5.1 mmol/L Chloride Level 97 L 98-107 mmol/L Carbon Dioxide Level 27 20-31 mmol/L Anion Gap 7 5-15 Blood Urea Nitrogen < 5 L 9-23 mg/dL Creatinine 0.55 L 0.700-1.30 mg/dL Glomerular Filtration Rate Calc 111 >90 mL/min BUN/Creatinine Ratio 9.1 L 10.0-20.0 Serum Glucose 90 74-106 mg/dL Calcium Level 8.9 8.7-10.4 mg/dL Total Bilirubin 0.7 0.2-1.0 mg/dL Aspartate Amino Transferase (AST) 45 H 13-40 U/L Alanine Aminotransferase (ALT) 29 7-40 U/L Alkaline Phosphatase 75 46-116 U/L Total Protein 7.6 5.7-8.2 g/dL Albumin 4.1 3.2-4.8 g/dL Lipase 54 H 12-53 U/L Current Medications Medications (Trade) Dose Ordered Sig/Sofía Route Start Time Stop Time Status Last Admin Albuterol (Ventolin Medneb) 2.5 mg ONCE ONCE NEB 10/08/24 20:30 10/08/24 20:31 DC 10/08/24 22:02 Ipratropium [place] (Atrovent Medneb) 0.5 mg ONCE ONCE NEB 10/08/24 20:30 10/08/24 20:31 DC 10/08/24 22:02 PATIENT: MADAI HASTINGS ACCT: [id number] UNIT: [id number] : 1960 LOC: ER ROOM / BED: / AGE / SEX: 64 / M ADM STATUS: REG ER SERVICE 02 ORDERING PHYSICIAN: IMELDA HSU MD PROCEDURE(s): CXR1 - CHEST XRAY 1 VIEW REASON: Epigastric pain ORDER NUMBER(s): [id number], ACCESSION NUMBER(s): [id number] CHEST RADIOGRAPH Indication: Epigastric pain Technique: Single frontal view of the chest was obtained Comparison: CT CHEST WITHOUT CONTRAST on DOS: 09/10/22, XY CHEST PORTABLE on DOS: 09/09/22, CHEST XRAY 1 VIEW on DOS: 11/29/20, CHEST WITHOUT CONTRAST on DOS: 08/27/20 FINDINGS: Lines and Tubes: None Lungs/pleura: Diffuse bilateral pleural plaque limiting evaluation of subadjacent lungs. Focal consolidation is not entirely excluded. No pleural effusion. No pneumothorax. Cardiomediastinal contours: Unremarkable Bones: No acute osseous abnormality. IMPRESSION: 1. Diffuse bilateral pleural plaque limiting evaluation of subadjacent lungs. Focal consolidation is not entirely excluded. Time of 1ST Reevaluation: 20:30 Reevaluation 1ST: Unchanged Patient Education/Counseling: Diagnosis, Treatment, Need For Follow Up Family Education/Counseling: No Family Present SEPSIS Sepsis Screen Date sepsis recognized/suspect: Oct 08, 2024 Time Sepsis recognized/suspect: 1945 Recent Procedure: No On Antibiotic Therapy: No Respiratory Rate >20: No Heart Rate >90: No Temp<36 C (96.8 F) or >38.3 C: No SBP <90 or MAP <65 mmHG: No New Acute Mental Status Change: No Is the patient on CPAP, BIPAP,: No Physician Orders Chest Xray 1 View (10/08/24 20:03) Admit (10/08/24 23:31) Code Status (10/08/24:) Vital Signs .PER UNIT PROTOCOL (10/08/24 23:) Review Orders With Adm.Md (10/08/24 23:31) Bedrest With Bathroom Privileg (10/08/24 23:31) Notify Md Of Changes From Base (10/08/24 23:) Advance Directive (10/08/24 23:31) Patient Condition (10/08/24 23:31) Allergies (10/08/24 23:) Ondansetron Hcl (Zofran) (10/08/24 23:45) Notify Md Of Changes From Base (10/08/24 23:) Pantoprazole Tablet (Protonix Tablet) (10/08/24 23:45) Complete Blood Count (10/09/24 04:00) Comprehensive Metabolic Panel (10/09/24 04:00) Vital Signs Date Time Temp Pulse Resp B/P (MAP) Pulse Ox O2 Delivery O2 Flow Rate FiO2 10/08/24 22:02 16 94 Room Air* 0 21 10/08/24 19:54 95 10/08/24 19:48 98.4 88 20 132/79 96 98.4 Laboratory Tests Test 10/08/24 20:15 White Blood Count 8.1 10^3/uL (4.4-10.8) Medications Medications Dose Ordered Sig/Sofía Route Start Time Stop Time Status Last Admin Dose Admin Albuterol 2.5 mg ONCE ONCE NEB 10/08/24 20:30 10/08/24 20:31 DC 10/08/24 22:02 Ipratropium [place] 0.5 mg ONCE ONCE NEB 10/08/24 20:30 10/08/24 20:31 DC 10/08/24 22:02 Departure 1 Departure Time of Disposition: 22:08 Impression: Primary Impression: Chest pain Additional Impressions: COPD exacerbation Abnormal chest x-ray Disposition: ADMITTED INPATIENT Condition: Guarded e-Prescriptions No Active Prescriptions or Reported Meds Comments Patient admitted to this facility in September of 2022 for acute hypoxic respiratory failure, COPD exacerbation, hypertension, hyperlipidemia and history of liver disease. At that time patient had chest x-ray which did not show pleural plaque as seen on chest x-ray today. Critical Care Note Critical Care Time?: No Stability Stability form required: No Heart Score Heart Score: Heart Score Response (Comments) Value History N/A 0 EKG N/A 0 Age N/A 0 Risk Factors N/A 0 Troponin N/A 0 Total 0 I personally scribed for IMELDA HSU MD ([email or web address]) on 10/08/24 at 20:03. Electronically submitted by Elder Cervantes ([email or web address]). I personally scribed for IMELDA HSU MD ([email or web address]) on 10/08/24 at 20:20. Electronically submitted by Elder Cervantes ([email or web address]). I personally scribed for IMELDA HSU MD ([email or web address]) on 10/08/24 at 21:28. Electronically submitted by Elder Cervantes ([email or web address]). IMELDA HSU MD Oct 08, 2024 20:03
[2024-10-08] MEDS: KETOROLAC TROMETH 30 MG/ML 1ML VIAL IM ONE (20:30)
[2024-10-08 20:40] LABS: Hematocrit 45.8 % (41.0-53.0); Hemoglobin 16.4 g/dL (13.5-17.5); Mean Corpuscular Hemoglobin 34.5 pg (28.0-32.0); Mean Corpuscular Volume 96.6 fL (80.0-100.0); Nucleated Red Blood Cells % 0.2 %
[2024-10-08 21:00] LABS: Alanine Aminotransferase 29 U/L (7-40); Albumin 4.1 g/dL (3.2-4.8); Alkaline Phosphatase 75 U/L (46-116); Anion Gap 7 (5-15); Bilirubin, Total 0.7 mg/dL (0.2-1.0); Calcium 8.9 mg/dL (8.7-10.4); Carbon Dioxide 27 mmol/L (20-31); Glucose 90 mg/dL (74-106); Potassium 4.0 mmol/L (3.5-5.1); Total Protein 7.6 g/dL (5.7-8.2)
[2024-10-08 21:02] LABS: BUN/Creatinine Ratio 9.1 (10.0-20.0); Blood Urea Nitrogen < 5 mg/dL (9-23); Chloride 97 mmol/L (98-107); Lipase 54 U/L (12-53); Sodium 131 mmol/L (136-145)
--- NOTE | 2024-10-08 21:13 | DVH ---
CHEST RADIOGRAPH Indication: Epigastric pain Technique: Single frontal view of the chest was obtained Comparison: CT CHEST WITHOUT CONTRAST on DOS: 09/10/22, XY CHEST PORTABLE on DOS: 09/09/22, CHEST XRAY 1 VIEW on DOS: 11/29/20, CHEST WITHOUT CONTRAST on DOS: 08/27/20 FINDINGS: Lines and Tubes: None Lungs/pleura: Diffuse bilateral pleural plaque limiting evaluation of subadjacent lungs. Focal consol idation is not entirely excluded. No pleural effusion. No pneumothorax. Cardiomediastinal contours: Unremarkable Bones: No acute osseous abnormality. IMPRESSION: 1. Diffuse bilateral pleural plaque limiting evaluation of subadjacent lungs. Focal consolidation is not entirely excluded.
[2024-10-08] MEDS: ALBUTEROL SULF 2.5 MG/0.5ML(0.5%) NEB SOLN NEB ONE (22:02)
[2024-10-08] MEDS: IPRATROPIUM BROM 0.5 MG/2.5ML INH SOL NEB ONE (22:02)
--- NOTE | 2024-10-08 22:02 | ECG ---
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
--- NOTE | 2024-10-08 23:36 | DVHHPRES ---
History of Present Illness Resident Creating Document: WARD STARKEY RESIDENT History of Present Illness Kit Joel is a 64 year old male with past medical history of hypertension, COPD, anxiety, and alcohol abuse. The patient visit the ED with a chief complaint of 2 days of intermittent abdominal pain, cramp-like, localized right upper quadrant, that radiates to the left upper quadrant, chest and back. The patient reports concomitant shortness of breath, productive cough, and nasal congestion. The patient denies nausea, vomiting, diarrhea, headache, palpitation, sick contacts, recent travel or other symptoms. Initial evaluation showed, Xray: Diffuse bilateral pleural plaque limiting evaluation of subadjacent lungs. Focal consolidation is not entirely excluded. Lipase 54 U/L, WBC 8.0 [id number]. Cardiovascular: HTN Pulmonary: COPD Past Surgical History: None Family History: None Smoke: 1 pack per day ALCOHOL: heavy Drugs: None Lives: with Family Review of Systems Constitutional: Yes: Malaise; No: Fever, Chills, Sweats, Weakness, Other Eyes: No: Pain, Vision change, Conjunctivae inflammation, Eyelid inflammation, Other, Redness ENT: No: Ear pain, Ear discharge, Nose pain, Nose discharge, Nose congestion, Mouth pain, Mouth swelling, Throat pain, Throat swelling, Other Respiratory: Cough, Shortness of breath, Sputum Cardiovascular: Chest Pain Gastrointestinal: No: Nausea, Vomiting, Abdominal Pain, Diarrhea, Constipation, Melena, Hematochezia, Other Genitourinary: No Dysuria, No Frequency, No Incontinence, No Hematuria, No Retention, No Other Musculoskeletal: No: other, neck pain, shoulder pain, arm pain, back pain, hand pain, leg pain, foot pain Skin: No: Rash, Lesions, Jaundice, Bruising, Other Neurological: No: Weakness, Numbness, Incoordination, Change in speech, Confusion, Seizures, Other Allergies: Coded Allergies: NO KNOWN ALLERGIES (Unverified , 08/25/20) Exam Vital Signs Vital Signs Date Time Temp Pulse Resp B/P (MAP) Pulse Ox O2 Delivery O2 Flow Rate FiO2 10/08/24 22:02 16 94 Room Air* 0 21 10/08/24 19:54 95 10/08/24 19:48 98.4 132/79 98.4 General Appearance: Oriented X3, Cooperative, No acute distress HEENT: Atraumatic, Mucous membr. moist/pink Respiratory: Other (Bilateral crackles and expiratory wheezing in both medial and lower lobes.) Cardiovascular: Regular rate, Normal S1, Normal S2, No murmurs Abdominal: Other (Bowel sounds 2+, flat, no distended. Tender to palpation in the upper right quadrant, epigastric and left quadrant, Andino's sign negative. ) Extremities: No clubbing, No cyanosis, No edema, Normal pulses, No tender ness/swelling Skin: No rashes, No breakdown, No significant lesion Neuro: Normal gait, Normal speech, Strength at 5/5 X4 ext, Normal tone, Sensation intact Psych/Mental Status: Mental status NL Labs/Xrays Labs Test 10/08/24 21:30 10/08/24 20:15 Range/Units Troponin I High Sensitivity < 3 L </=54 ng/L White Blood Count 8.1 4.4-10.8 10^3/uL Red Blood Count 4.74 4.5-5.90 10^6/uL Hemoglobin 16.4 13.5-17.5 g/dL Hematocrit 45.8 41.0-53.0 % Mean Corpuscular Volume 96.6 80.0-100.0 fL Mean Corpuscular Hemoglobin 34.5 H 28.0-32.0 pg Mean Corpuscular Hemoglobin Concent 35.7 32.0-36.0 g/dL Red Cell Distribution Width 13.0 11.8-14.3 % Platelet Count 292 140-450 10^3/uL Mean Platelet Volume 6.0 L 6.9-10.8 fL Neutrophils (%) (Auto) 53.0 37.0-80.0 % Lymphocytes (%) (Auto) 31.3 10.0-50.0 % Monocytes (%) (Auto) 9.5 0.0-12.0 % Eosinophils (%) (Auto) 5.2 0.0-7.0 % Basophils (%) (Auto) 1.0 0.0-2.0 % Neutrophils # (Auto) 4.3 1.6-8.6 10 ^3/uL Lymphocytes # (Auto) 2.5 0.4-5.4 10 ^3/uL Monocytes # (Auto) 0.8 0-1.3 10 ^3/uL Eosinophils # (Auto) 0.4 0-0.8 10 ^3/uL Basophils # (Auto) 0.1 0-0.2 10 ^3/uL Nucleated Red Blood Cells 0.2 % Sodium Level 131 L 136-145 mmol/L Potassium Level 4.0 3.5-5.1 mmol/L Chloride Level 97 L 98-107 mmol/L Carbon Dioxide Level 27 20-31 mmol/L Anion Gap 7 5-15 Blood Urea Nitrogen < 5 L 9-23 mg/dL Creatinine 0.55 L 0.700-1.30 mg/dL Glomerular Filtration Rate Calc 111 >90 mL/min BUN/Creatinine Ratio 9.1 L 10.0-20.0 Serum Glucose 90 74-106 mg/dL Calcium Level 8.9 8.7-10.4 mg/dL Total Bilirubin 0.7 0.2-1.0 mg/dL Aspartate Amino Transferase (AST) 45 H 13-40 U/L Alanine Aminotransferase (ALT) 29 7-40 U/L Alkaline Phosphatase 75 46-116 U/L Total Protein 7.6 5.7-8.2 g/dL Albumin 4.1 3.2-4.8 g/dL Lipase 54 H 12-53 U/L SEPSIS Sepsis Screen Date sepsis recognized/suspect: Oct 08, 2024 Time Sepsis recognized/suspect: 1945 Recent Procedure: No On Antibiotic Therapy: No Respiratory Rate >20: No Heart Rate >90: No Temp<36 C (96.8 F) or >38.3 C: No SBP <90 or MAP <65 mmHG: No New Acute Mental Status Change: No Is the patient on CPAP, BIPAP,: No Physician Orders Chest Xray 1 View (10/08/24 20:03) Vital Signs Date Time Temp Pulse Resp B/P (MAP) Pulse Ox O2 Delivery O2 Flow Rate FiO2 10/08/24 22:02 16 94 Room Air* 0 21 10/08/24 19:54 95 10/08/24 19:48 98.4 88 20 132/79 96 98.4 Laboratory Tests Test 10/08/24 20:15 White Blood Count 8.1 10^3/uL (4.4-10.8) Medications Medications Dose Ordered Sig/Sofía Route Start Time Stop Time Status Last Admin Dose Admin Albuterol 2.5 mg ONCE ONCE NEB 10/08/24 20:30 10/08/24 20:31 DC 10/08/24 22:02 2.5 MG Ipratropium [place] 0.5 mg ONCE ONCE NEB 10/08/24 20:30 10/08/24 20:31 DC 10/08/24 22:02 0.5 MG Assessment/Plan Assessment/Plan #Intractable abdominal pain, Rule out pancreatitis. NPO IV fluids Lipase 54 Abdominal/Pelvis CT scan #Acute on chronic COPD exacerbation like due to pneumonia gram +/- #Pleural plaques IV fluids Ceftriaxone IV Azitromicyn IV Albuterol NB Ipatropium NB #Smoker Counseling about quitting #Alcohol abuse disorder Counseling about quitting #Anxiety Medication reconciliation. #Essential Hypertension Medication reconciliation. Cardiac diet DVT prophylaxis-Deambulating PUD prophylaxis Protonic Goals of care discussed with the patient > 35 min. Discussed plan of care with Dr. Bahena Code status: Full code PCP: Does not recall name Plan discussed with: Patient, the patient agrees with the admission plan. Plan discussed with: Patient Common Visit Codes: 37132-[id number] INP/OBS CARE (HIGH) Secondary Visit Codes: [id number] CARE PLAN 30 MINUTES WARD STARKEY RESIDENT Oct 08, 2024 23:36
[2024-10-09] VITALS (11 sets, daily range): BP systolic 115–146; BP diastolic 66–83; PULSE 75–88; RESP 16–22; TEMP 97.6–98.4; O2SAT 93–100
[2024-10-09] MEDS ORDERED: ALBUTEROL SULF 2.5 MG/0.5ML(0.5%) NEB SOLN NEB SCH (03:00)
[2024-10-09] MEDS: SODIUM CHLORIDE 0.9% 2,000 ML IV ONE (03:00)
--- NOTE | 2024-10-09 04:00 | DVH ---
Exam: CT CT AB PEL WO CON-NO ORAL OR IV History: Abdominal pain, elevated Lipase, R/O pancreatitis Comparison Study: ABDOMEN LIMITED on DOS: 08/26/20 TECHNIQUE: Multidetector CT of the abdomen and pelvis was performed from lung bases to pubic symphysi s. Imaging was performed without IV contrast. Axial, coronal and sagittal multiplanar reformats were obtained from the axial data set by the technologist. Radiation optimization: All CT scans at this facility use at least one of these dose optimization amina hniques: automated exposure control mA and/or kV adjustment per patient size (includes targeted exam s where dose is matched to clinical indication) or iterative reconstruction. Radiation Dose Information: CT Dose: CTDI volume is 5.12 mGy. Dose-length product is 3.92 mGy*cm FINDINGS: Evaluation of solid organs is limited due to lack of intravenous contrast use. Imaged portions of the lung bases demonstrate marked pleural calcifications on the right. Diffuse int erstitial thickening. There is a small to moderate hiatal hernia. Liver, gallbladder, spleen and pancreas appear unremarkab le. There is a air-filled 2.5 cm lucency along the pancreatic head which has the appearance of a dive rticulum of the 2nd portion of the duodenum. Kidneys appear symmetric without hydronephrosis. There i s no evidence of bowel obstruction. Small amount of free fluid versus cystocele in the posterior brad rectal space. Severe degenerative changes of the lumbar spine without suspicious osseous lesion. IMPRESSION: 1. No acute abdominal or pelvic finding. 2. Duodenal diverticulum. 3. Marked pleural calcifications
[2024-10-09 04:13] LABS: Hematocrit 51.7 % (41.0-53.0); Hemoglobin 18.3 g/dL (13.5-17.5); Mean Corpuscular Hemoglobin 34.6 pg (28.0-32.0); Mean Corpuscular Volume 97.6 fL (80.0-100.0); Nucleated Red Blood Cells % 0.4 %
[2024-10-09 04:31] LABS: Alanine Aminotransferase 35 U/L (7-40); Albumin 4.7 g/dL (3.2-4.8); Alkaline Phosphatase 91 U/L (46-116); Anion Gap 10 (5-15); Bilirubin, Total 0.9 mg/dL (0.2-1.0); Calcium 9.6 mg/dL (8.7-10.4); Carbon Dioxide 26 mmol/L (20-31); Chloride 98 mmol/L (98-107); Potassium 4.0 mmol/L (3.5-5.1)
[2024-10-09 04:39] LABS: BUN/Creatinine Ratio 8.5 (10.0-20.0); Blood Urea Nitrogen < 5 mg/dL (9-23); Glucose 111 mg/dL (74-106); Sodium 134 mmol/L (136-145); Total Protein 8.8 g/dL (5.7-8.2)
[2024-10-09] MEDS: ACETAMINOPHEN 325 MG TAB PO ONE (05:02)
[2024-10-09] MEDS: PANTOPRAZOLE 40 MG TAB PO ONE (05:03)
[2024-10-09 07:13] LABS: Urine Protein, UAD Negative (Negative)
--- NOTE | 2024-10-09 07:30 | DVHPNRES ---
Progress Note Date Seen: Oct 09, 2024 Resident Creating Document: JEROME MILAN RESIDENT Medical Necessity Reason Pt with a Central, PICC or Fol: No Subjective Review of Systems Kate Vargas a 64-year-old male with past medical history of hypertension, COPD, anxiety, and alcohol abuse. The patient visit the ED with a chief complaint of 2 days of intermittent abdominal pain, cramp-like, localized right upper quadrant & epigastric region. Also complained of pain in chest and back. The patient reports concomitant shortness of breath, dry cough, and nasal congestion. The patient denies nausea, vomiting, diarrhea, headache, palpitation, sick contacts, recent travel or other symptoms. Social history: 1 pack per day smoking, alcohol use 2 beers twice weekly, no recreational drug use. Lives in home with sister. Home medication: no ROS: Constitutional: Denies weight loss, fever and chills. HEENT: Denies changes in vision and hearing. Respiratory: shortness of breath and dry cough Cardiovascular: Chest discomfort GI: Abdominal pain, no nausea, vomiting and diarrhea. : Denies dysuria and urinary frequency. Musculoskeletal: Denies myalgias and joint pain Skin: Denies rash and pruritus. Neurological: Denies dizziness, headache, vision or hearing problems Patient was examined at bedside today. His vitals show high blood pressure. He continues to complain of abdominal pain in the epigastric and right upper quadrant, pain is cramp like. He also complains of back pain. Objective vital signs Vital Sign Date Time Temp Pulse Resp B/P (MAP) Pulse Ox O2 Delivery O2 Flow Rate FiO2 10/09/24 05:24 Room Air* 0 21 10/09/24 04:58 98.0 88 17 143/83 (103) 97 98.0 Total Intake and Output 10/08/24 10/08/24 10/09/24 15:00 23:00 07:00 Intake Total 10 ml Balance 10 ml medications Current Medications Medications Dose Ordered Sig/Sofía Route Start Time Stop Time Status Last Admin Dose Admin Ondansetron HCl 4 mg Q4HP PRN IV 10/08/24 23:45 Azithromycin 250 ml @ 125 mls/hr DAILY IV 10/09/24 10:00 Ceftriaxone Sodium 50 ml @ 100 mls/hr DAILY@09 IV 10/09/24 09:00 Albuterol 2.5 mg Q4HP NEB 10/09/24 03:00 Cancel Ipratropium [place] 0.5 mg Q4HP PRN NEB 10/09/24 02:30 Albuterol 2.5 mg Q4HPRN PRN NEB 10/09/24 05:45 Examination General: Patient alert and oriented in person, place and time. Patient following commands. HEENT: Injection in bilateral eyes for dry mucous membrane. Normocephalic, atraumatic Respiratory/pulmonary: Wheeze heard on the left lower lung Cardiovascular: Normal heart sounds S1 and S2 with no associated murmurs Abdomen: Abdominal tenderness in epigastrium and right upper quadrant. Andino sign positive. Extremities: There is no peripheral edema present at the lower extremities. Skin: No rashes or pruritus, there is no sacral edema present at this time. Neurological: Intact cranial nerves with no focal neurologic deficits laboratory and microbiology Laboratory Tests 10/09/24 03:44 Test 10/09/24 03:44 Range/Units Serum Glucose 111 H 74-106 mg/dL Problem List/Assessment/Plan Problem List/Assessment/Plan Acute exacerbation of COPD, due to pneumonia Gram-negative, Gram-positive, possible Continue azithromycin, discontinued ceftriaxone Managed with med neb treatment Continue pain management CXR revealed: Diffuse bilateral pleural plaque limiting evaluation of subadjacent lungs. Focal consolidation is not entirely excluded. Acute alcohol intoxication, possible Toxicology reveals serum alcohol 20 Continue folic acid, thiamine, banana bag Continue CIWA protocol Chest pain, ruled out ACS EKG revealed: Sinus tachycardia, multiform ventricular premature complexes, ST elevation suggests acute pericarditis Troponin WNL Hypernatremia Labs show sodium 134 Continue monitoring and managing Elevated liver enzymes labs show elevated AST Pancreatitis, ruled out lipase borderline elevated CT abdomen Hiatal hernia, CT finding Duodenal diverticulum, CT finding DIET: NPO GI PROPHYLAXIS: Pepcid CODE STATUS: Goals of care discussed with patient at bedside for more than 35 minutes. Full code DISPOSITION: Med/surge Patient's status and plan discussed with the patient. Case discussed with Dr. Willett. Plan discussed with: Patient Date of Service: Oct 09, 2024 Billing Provider: DES WILLETT MD Common Visit Codes: [id number] INP/OBS CARE(HIGH) JEROME MILAN Oct 09, 2024 07:30 DES WILLETT MD Oct 13, 2024 20:22
[2024-10-09] MEDS: IPRATROPIUM BROM 0.5 MG/2.5ML INH SOL NEB PRN (08:02)
[2024-10-09] MEDS: ALBUTEROL SULF 2.5 MG/0.5ML(0.5%) NEB SOLN NEB PRN (08:02)
[2024-10-09] MEDS ORDERED: cefTRIAXone 1GM/50ML D5W 50 ML IV SCH (09:00)
[2024-10-09] MEDS ORDERED: FAMOTIDINE (10MG/ML) 2ML VL IV SCH (09:45)
[2024-10-09] MEDS ORDERED: THIAMINE 100mg/ml INJ (200mg/2ml VIAL) IV SCH (10:00)
[2024-10-09] MEDS ORDERED: MULTIPLE VITAMINS W/ MINERALS TAB PO SCH (10:00)
[2024-10-09 10:01] LABS: Opiate Scree,Urine Neg (NEGATIVE)
[2024-10-09 10:05] LABS: Amphetamine Screen, Urine Neg (NEGATIVE); Barbiturate Scree,Urine Neg (NEGATIVE); Benzodiazephine Screen, Urine Neg (NEGATIVE); Cannabinoid Screen, Urine Neg (NEGATIVE); Cocaine Screen, Urine Neg (NEGATIVE); Phencyclidine Screen, Urine Neg (NEGATIVE)
[2024-10-09 10:08] LABS: Magnesium 2.0 mg/dL (1.6-2.6)
[2024-10-09] MEDS: FOLIC ACID 1 MG in D5W 5% 50 ML INJ ONE (12:28)
[2024-10-09] MEDS: AZITHROMYCIN 500MG/ 250ML 250 ML IV SCH (13:29)
[2024-10-09] MEDS: THIAMINE 100mg/ml INJ (200mg/2ml VIAL) IV ONE (13:37)
[2024-10-09] MEDS: ONDANSETRON HCL 4 MG/2 ML VIAL IV PRN (17:04)
[2024-10-09] MEDS: FOLIC ACID 1 MG, MULTIPLE VITAMIN 10 ML, MAGNESIUM SULF SDV 50% 8 MEQ, THIAMINE INJ 100... INJ SCH (18:07)
[2024-10-09 19:47] LABS: COVID19 ANTIGEN SOFIA FIA NEGATIVE (NEGATIVE)
[2024-10-09] MEDS: FAMOTIDINE 20 MG TAB PO SCH (21:33)
[2024-10-10] VITALS (10 sets, daily range): BP systolic 119–144; BP diastolic 66–83; PULSE 85–111; RESP 15–18; TEMP 97.6–98.6; O2SAT 94–99
[2024-10-10] MEDS: predniSONE 20 MG TAB PO ONE (06:30)
[2024-10-10] MEDS: NICOTINE 7MG/24HR TOPICAL PATCH TD ONE (09:00)
[2024-10-10] MEDS ORDERED: FOLIC ACID 1 MG TAB PO SCH (10:00)
[2024-10-10] MEDS ORDERED: FAMOTIDINE 20 MG TAB PO SCH (10:00)
[2024-10-10] MEDS: MAALOX PLUS or MAALOX 30 ML PO ONE (10:21)
[2024-10-10 10:47] LABS: Alanine Aminotransferase 38 U/L (7-40); Albumin 4.6 g/dL (3.2-4.8); Alkaline Phosphatase 84 U/L (46-116); Calcium 9.5 mg/dL (8.7-10.4); Carbon Dioxide 28 mmol/L (20-31); Chloride 98 mmol/L (98-107); Glucose 102 mg/dL (74-106); Magnesium 2.0 mg/dL (1.6-2.6); Potassium 4.0 mmol/L (3.5-5.1)
[2024-10-10 10:51] LABS: Bilirubin, Total 1.7 mg/dL (0.2-1.0); Blood Urea Nitrogen < 5 mg/dL (9-23); Sodium 133 mmol/L (136-145); Total Protein 8.5 g/dL (5.7-8.2)
[2024-10-10 10:52] LABS: BUN/Creatinine Ratio 7.6 (10.0-20.0)
[2024-10-10 10:53] LABS: Anion Gap 7 (5-15)
[2024-10-10 11:03] LABS: Hemoglobin 17.7 g/dL (13.5-17.5)
[2024-10-10 11:06] LABS: Hematocrit 49.5 % (41.0-53.0); Mean Corpuscular Hemoglobin 34.5 pg (28.0-32.0); Mean Corpuscular Volume 96.3 fL (80.0-100.0); Nucleated Red Blood Cells % 0.4 %
[2024-10-10] MEDS: MAALOX PLUS or MAALOX 30 ML PO SCH (14:00)
[2024-10-10] MEDS: LORazepam 2MG/ML-1ML VIAL IV PRN (15:26)
--- NOTE | 2024-10-10 17:40 | DVHPNRES ---
Progress Note Date Seen: Oct 10, 2024 Resident Creating Document: JEROME MILAN RESIDENT Medical Necessity Reason Pt with a Central, PICC or Fol: No Subjective Review of Systems Kate Vargas a 64-year-old male with past medical history of hypertension, COPD, anxiety, and alcohol abuse. The patient visit the ED with a chief complaint of 2 days of intermittent abdominal pain, cramp-like, localized right upper quadrant & epigastric region. Also complained of pain in chest and back. The patient reports concomitant shortness of breath, dry cough, and nasal congestion. The patient denies nausea, vomiting, diarrhea, headache, palpitation, sick contacts, recent travel or other symptoms. Social history: 1 pack per day smoking, alcohol use 2 beers twice weekly, no recreational drug use. Lives in home with sister. Home medication: no ROS: Constitutional: Denies weight loss, fever and chills. HEENT: Denies changes in vision and hearing. Respiratory: shortness of breath and dry cough Cardiovascular: Chest discomfort GI: Abdominal pain, no nausea, vomiting and diarrhea. : Denies dysuria and urinary frequency. Musculoskeletal: Denies myalgias and joint pain Skin: Denies rash and pruritus. Neurological: Denies dizziness, headache, vision or hearing problems Patient was examined at bedside today. His vitals show high blood pressure. He continues to complain of abdominal pain in the epigastric and right upper quadrant, pain is cramp like. Required oxygen in the morning for comfort. We will continue monitoring and managing Objective vital signs Vital Sign Date Time Temp Pulse Resp B/P (MAP) Pulse Ox O2 Delivery O2 Flow Rate FiO2 10/10/24 17:00 97.8 105 17 129/71 (90) 96 97.8 10/10/24 10:00 Room Air* 0 21 Total Intake and Output 10/09/24 10/09/24 10/10/24 15:00 23:00 07:00 Intake Total 20 ml Output Total 700 ml Balance -680 ml medications Current Medications Medications Dose Ordered Sig/Sofía Route Start Time Stop Time Status Last Admin Dose Admin Ondansetron HCl 4 mg Q4HP PRN IV 10/08/24 23:45 10/10/24 06:43 4 MG Azithromycin 250 ml @ 125 mls/hr DAILY IV 10/09/24 10:00 10/10/24 10:17 125 MLS/HR Albuterol 2.5 mg Q4HP NEB 10/09/24 03:00 Cancel Ipratropium [place] 0.5 mg Q4HP PRN NEB 10/09/24 02:30 10/09/24 08:02 0.5 MG Albuterol 2.5 mg Q4HPRN PRN NEB 10/09/24 05:45 10/09/24 08:02 2.5 MG Folic Acid 1 mg/ Multivitamins 10 ml/Magnesium Sulfate 8 meq/ Thiamine HCl 100 mg/Dextrose 1,013.2 ml @ 125.001 mls/hr DAILY@1800 INJ 10/09/24 18:00 10/09/24 18:07 125.001 MLS/HR Thiamine HCl 100 mg DAILY IV 10/09/24 10:00 Hold Multivitamins/ Minerals 1 tab DAILY PO 10/09/24 10:00 Hold Folic Acid 1 mg DAILY PO 10/10/24 10:00 Hold Lorazepam 1 mg Q2HPRN PRN IV 10/09/24 09:30 10/10/24 15:26 1 MG Magnesium Oxide 400 mg BID PO 10/09/24 11:45 Hold Prednisone 40 mg DAILY PO 10/11/24 10:00 Al Hydrox/Mg Hydrox/Simethicone 30 ml Q8HR PO 10/10/24 14:00 10/10/24 14:00 30 ML Famotidine 20 mg Q12HR PO 10/10/24 22:00 Examination General: Patient alert and oriented in person, place and time. Patient following commands. HEENT: Normocephalic, atraumatic Respiratory/pulmonary: Wheeze heard on the left lower lung Cardiovascular: Normal heart sounds S1 and S2 with no associated murmurs Abdomen: Mild Abdominal tenderness in epigastrium and right upper quadrant. Extremities: There is no peripheral edema present at the lower extremities. Skin: No rashes or pruritus, there is no sacral edema present at this time. Neurological: Intact cranial nerves with no focal neurologic deficits laboratory and microbiology Laboratory Tests 10/10/24 10:42 10/10/24 09:23 Test 10/10/24 09:23 Range/Units Serum Glucose 102 74-106 mg/dL Microbiology Date/Time Source Procedure Growth Status 10/09/24 19:05 Nose MRSA Screen - Final Complete 10/09/24 08:45 Sputum Expectorated Sputum Gram Stain - Final Resulted 10/09/24 08:45 Sputum Expectorated Sputum Respiratory Culture - Preliminary Resulted Problem List/Assessment/Plan Problem List/Assessment/Plan Acute exacerbation of COPD, due to pneumonia Gram-negative, Gram-positive, possible Continue IV azithromycin, discontinued ceftriaxone Managed with med neb treatment Continue pain management CXR revealed: Diffuse bilateral pleural plaque limiting evaluation of subadjacent lungs. Focal consolidation is not entirely excluded. Acute gastritis, possible Continue famotidine, aluminum and magnesium hydroxide. Acute alcohol intoxication, possible Toxicology reveals serum alcohol 20 Continue folic acid, thiamine, banana bag Continue CIWA protocol Chest pain, ruled out ACS EKG revealed: Sinus tachycardia, multiform ventricular premature complexes, ST elevation suggests acute pericarditis Troponin WNL Hypernatremia Labs show sodium 134 Continue monitoring and managing Elevated liver enzymes labs show elevated AST Pancreatitis, ruled out Lipase borderline elevated CT abdomen revealed no acute abdominal pathology Hiatal hernia, CT finding Duodenal diverticulum, CT finding DIET: Regular GI PROPHYLAXIS: Pepcid CODE STATUS: Goals of care discussed with patient at bedside for more than 35 minutes. Full code DISPOSITION: Med/surge Patient's status and plan discussed with the patient. Case discussed with Dr. Gaston. Plan discussed with: Patient Date of Service: Oct 10, 2024 Billing Provider: DES GASTON MD Common Visit Codes: [id number] INP/OBS CARE(HIGH) JEROME MILAN RESIDENT Oct 10, 2024 17:40 DES GASTON MD Oct 13, 2024 20:43
--- NOTE | 2024-10-10 19:18 | DVHDSRES ---
Discharge Summary Date of Admission Resident Creating Document: JEROME MILAN RESIDENT Oct 08, 2024 at 23:31 Admitting Diagnosis Acute exacerbation of COPD, due to pneumonia Gram-negative, Gram-positive, possible Labs/Diagnostic Data: Laboratory Results Test 10/10/24 10:42 10/10/24 09:23 10/09/24 17:10 10/09/24 06:27 White Blood Count 7.6 10^3/uL (4.4-10.8) Red Blood Count 5.13 10^6/uL (4.5-5.90) Hemoglobin 17.7 g/dL (13.5-17.5) Hematocrit 49.5 % (41.0-53.0) Mean Corpuscular Volume 96.3 fL (80.0-100.0) Mean Corpuscular Hemoglobin 34.5 pg (28.0-32.0) Mean Corpuscular Hemoglobin Concent 35.8 g/dL (32.0-36.0) Red Cell Distribution Width 12.9 % (11.8-14.3) Platelet Count 263 10^3/uL (140-450) Mean Platelet Volume 6.2 fL (6.9-10.8) Neutrophils (%) (Auto) 77.1 % (37.0-80.0) Lymphocytes (%) (Auto) 13.1 % (10.0-50.0) Monocytes (%) (Auto) 7.2 % (0.0-12.0) Eosinophils (%) (Auto) 2.0 % (0.0-7.0) Basophils (%) (Auto) 0.6 % (0.0-2.0) Neutrophils # (Auto) 5.8 10 ^3/uL (1.6-8.6) Lymphocytes # (Auto) 1.0 10 ^3/uL (0.4-5.4) Monocytes # (Auto) 0.5 10 ^3/uL (0-1.3) Eosinophils # (Auto) 0.1 10 ^3/uL (0-0.8) Basophils # (Auto) 0 10 ^3/uL (0-0.2) Nucleated Red Blood Cells 0.4 % Sodium Level 133 mmol/L (136-145) Potassium Level 4.0 mmol/L (3.5-5.1) Chloride Level 98 mmol/L (98-107) Carbon Dioxide Level 28 mmol/L (20-31) Anion Gap 7 (5-15) Blood Urea Nitrogen < 5 mg/dL (9-23) Creatinine 0.66 mg/dL (0.700-1.30) Glomerular Filtration Rate Calc 105 mL/min (>90) BUN/Creatinine Ratio 7.6 (10.0-20.0) Serum Glucose 102 mg/dL (74-106) Calcium Level 9.5 mg/dL (8.7-10.4) Phosphorus Level 2.9 mg/dL (2.4-5.1) Magnesium Level 2.0 mg/dL (1.6-2.6) Total Bilirubin 1.7 mg/dL (0.2-1.0) Aspartate Amino Transferase (AST) 53 U/L (13-40) Alanine Aminotransferase (ALT) 38 U/L (7-40) Alkaline Phosphatase 84 U/L (46-116) Total Protein 8.5 g/dL (5.7-8.2) Albumin 4.6 g/dL (3.2-4.8) Influenza Type A Antigen Negative (Negative) Influenza Type B Antigen Negative (Negative) SARS-CoV-2 Antigen (Rapid) Negative (NEGATIVE) Urine Color Light-yellow (Yellow) Urine Clarity Clear (Clear) Urine pH 6.5 (5.0-9.0) Urine Specific [place] 1.006 (1.001-1.035) Urine Protein Negative (Negative) Urine Ketones Negative (Negative) Urine Blood Negative /uL (Negative) Urine Nitrite Negative (Negative) Urine Bilirubin Negative (Negative) Urine Urobilinogen Normal mg/dL (Negative) Urine Leukocyte Esterase Negative /uL (Negative) Urine RBC None seen /hpf (0 - 3) Urine Microscopic WBC 6 /HPF (0-3) Urine Squamous Epithelial Cells None seen /hpf (<5) Urine Bacteria None seen /hpf (None Seen) Urine Glucose Normal mg/dL (Normal) Urine Opiates Screen Neg (NEGATIVE) Urine Fentanyl Screen Neg (NEGATIVE) Urine Barbiturates Screen Neg (NEGATIVE) Urine Phencyclidine Screen Neg (NEGATIVE) Urine Amphetamines Screen Neg (NEGATIVE) Urine Benzodiazepines Screen Neg (NEGATIVE) Urine Cocaine Screen Neg (NEGATIVE) Urine Cannabinoids Screen Neg (NEGATIVE) Test 10/09/24 03:44 10/08/24 21:30 10/08/24 20:15 Plasma/Serum Blood Alcohol 20.0 mg/dL (<10) Troponin I High Sensitivity < 3 ng/L (</=54) Lipase 54 U/L (12-53) Other Laboratory Tests 10/10/24 10:42 10/10/24 09:23 Brief Hx & Hospital Course: Brief history: Kate Vargas a 64-year-old male with past medical history of hypertension, COPD, anxiety, and alcohol abuse. The patient visit the ED with a chief complaint of 2 days of intermittent abdominal pain, cramp-like, localized right upper quadrant & epigastric region. Also complained of pain in chest and back. The patient reports concomitant shortness of breath, dry cough, and nasal congestion. The patient denies nausea, vomiting, diarrhea, headache, palpitation, sick contacts, recent travel or other symptoms. Hospital course: He was admitted along the lines of acute exacerbation of COPD. Managed with IV azithromycin, med neb treatment, pain control. Initial CXR revealed: Diffuse bilateral pleural plaque limiting evaluation of subadjacent lungs. Focal consolidation is not entirely excluded. Toxicology screen positive for alcohol use, managed with CIWA protocol. His symptoms have resolved now. He is stable for discharge. Discharge Diagnosis: Acute exacerbation of COPD, due to pneumonia Gram-negative, Gram-positive, possible Acute gastritis, possible Acute alcohol intoxication, possible Chest pain, ruled out ACS Troponin WNL Hypernatremia Elevated liver enzymes Pancreatitis, ruled out Hiatal hernia, CT finding Duodenal diverticulum, CT finding Discharge plan: Please follow-up with PCP in 1 week. Please follow with GI as outpatient Please continue Azithromycin (Zithromax Tablet) 250 Mg Tb for 2 days Please continue Prednisone 20 Mg Tab for 2 days Continue Pantoprazole Sodium Sesquihydr (Protonix) 40 Mg Tab daily for 1 month Continue Sucralfate (Carafate Susp) 1 Gm/10 Ml Ss 3 times daily for 1 month Operations or Procedures CT CT AB PEL WO CON-NO ORAL OR IV History: Abdominal pain, elevated Lipase, R/O pancreatitis Comparison Study: ABDOMEN LIMITED on DOS: 08/26/20 TECHNIQUE: Multidetector CT of the abdomen and pelvis was performed from lung bases to pubic symphysis. Imaging was performed without IV contrast. Axial, coronal and sagittal multiplanar reformats were obtained from the axial data set by the technologist. Radiation optimization: All CT scans at this facility use at least one of these dose optimization techniques: automated exposure control mA and/or kV adjustment per patient size (includes targeted exams where dose is matched to clinical indication) or iterative reconstruction. Radiation Dose Information: CT Dose: CTDI volume is 5.12 mGy. Dose-length product is 3.92 mGy*cm FINDINGS: Evaluation of solid organs is limited due to lack of intravenous contrast use. Imaged portions of the lung bases demonstrate marked pleural calcifications on the right. Diffuse interstitial thickening. There is a small to moderate hiatal hernia. Liver, gallbladder, spleen and pancreas appear unremarkable. There is a air-filled 2.5 cm lucency along the pancreatic head which has the appearance of a diverticulum of the 2nd portion of the duodenum. Kidneys appear symmetric without hydronephrosis. There is no evidence of bowel obstruction. Small amount of free fluid versus cystocele in the posterior perirectal space. Severe degenerative changes of the lumbar spine without suspicious osseous lesion. IMPRESSION: 1. No acute abdominal or pelvic finding. 2. Duodenal diverticulum. 3. Marked pleural calcifications -- Single frontal view of the chest was obtained Comparison: CT CHEST WITHOUT CONTRAST on DOS: 09/10/22, XY CHEST PORTABLE on DOS: 09/09/22, CHEST XRAY 1 VIEW on DOS: 11/29/20, CHEST WITHOUT CONTRAST on DOS: 08/27/20 FINDINGS: Lines and Tubes: None Lungs/pleura: Diffuse bilateral pleural plaque limiting evaluation of subadjacent lungs. Focal consolidation is not entirely excluded. No pleural effusion. No pneumothorax. Cardiomediastinal contours: Unremarkable Bones: No acute osseous abnormality. IMPRESSION: 1. Diffuse bilateral pleural plaque limiting evaluation of subadjacent lungs. Focal consolidation is not entirely excluded. Final Diagnosis/Problems List Acute exacerbation of COPD, due to pneumonia Gram-negative, Gram-positive, possible Acute gastritis, possible Acute alcohol intoxication, possible Chest pain, ruled out ACS Troponin WNL Hypernatremia Elevated liver enzymes Pancreatitis, ruled out Hiatal hernia, CT finding Duodenal diverticulum, CT finding Discharge Instruct/Medications Scheduled Azithromycin (Zithromax Tablet), 250 MG PO DAILY Pantoprazole Sodium Sesquihydr (Protonix), 40 MG PO DAILY Prednisone (Prednisone), 40 MG PO DAILY Sucralfate (Carafate Susp), 10 ML PO QID Discharge Statement: "Patient was advised to return to the ER or call 911 if any headaches, dizziness, shortness of breath, chest pain, abdominal pain, bleeding, fevers, or worsening of medical condition. Patient was counseled about treatment plan, medications, possible side effects, patientverbalized understanding. All questions were answered to the best of my ability. This discharge took greater then 30 minutes in planning, reviewing documentation, counseling the patient, and discussing with other team members." ASSESSMENT ASSESSMENT Assessment JEROME MILAN RESIDENT Oct 10, 2024 19:18
--- NOTE | 2024-10-10 20:05 | DVH ---
INDICATION: rule out hepatobiliarty pathology TECHNIQUE: Multiple real-time sonographic images of the abdomen were obtained. COMPARISON: ABDOMEN LIMITED on DOS: 08/26/20 FINDINGS: Hepatic parenchyma consistent with steatosis The liver measures 15.47 cm. No intrahepatic biliary ductal dilatation is noted. The gallbladder wall measures 0.14 cm and is unremarkable. Gallstones noted in the gallbladder. The re is a questionable polyp. The common duct measures 0.52 cm and is unremarkable. No pericholecysti c fluid is noted. Negative sonographic Andino's sign The right kidney measures 11.45 cm. No hydronephrosis. The pancreas is not well visualized due to obscuration from bowel gas. IMPRESSION: 1. 15.47 cm liver with a slightly echogenic hepatic parenchyma consistent with steatosis. 2. Cholelithiasis and possible polyp in the gallbladder. Negative sonographic andino's sign.
[2024-10-10] MEDS: FAMOTIDINE 20 MG TAB PO SCH (21:45)
[2024-10-11] VITALS (9 sets, daily range): BP systolic 87–119; BP diastolic 51–74; PULSE 83–102; RESP 19–20; TEMP 97.5–97.8; O2SAT 93–98
[2024-10-11] MEDS: predniSONE 20 MG TAB PO SCH (09:29)
[2024-10-11] MEDS ORDERED: PANT40TA2 PO (12:14)
[2024-10-11] MEDS ORDERED: PRED20TA2 PO (12:14)
[2024-10-11] MEDS ORDERED: AZIT-185 PO (12:14)
[2024-10-11] MEDS ORDERED: SUCR1SUS26 PO (12:14)
--- NOTE | 2024-10-11 12:27 | DVHDSRES ---
Discharge Summary Date of Admission Resident Creating Document: JEROME MILAN RESIDENT Oct 08, 2024 at 23:31 Date of Discharge: Oct 11, 2024 Admitting Diagnosis Acute exacerbation of COPD, due to pneumonia Gram-negative, Gram- positive,possible Labs/Diagnostic Data: Laboratory Results Test 10/10/24 10:42 10/10/24 09:23 10/09/24 17:10 10/09/24 06:27 White Blood Count 7.6 10^3/uL (4.4-10.8) Red Blood Count 5.13 10^6/uL (4.5-5.90) Hemoglobin 17.7 g/dL (13.5-17.5) Hematocrit 49.5 % (41.0-53.0) Mean Corpuscular Volume 96.3 fL (80.0-100.0) Mean Corpuscular Hemoglobin 34.5 pg (28.0-32.0) Mean Corpuscular Hemoglobin Concent 35.8 g/dL (32.0-36.0) Red Cell Distribution Width 12.9 % (11.8-14.3) Platelet Count 263 10^3/uL (140-450) Mean Platelet Volume 6.2 fL (6.9-10.8) Neutrophils (%) (Auto) 77.1 % (37.0-80.0) Lymphocytes (%) (Auto) 13.1 % (10.0-50.0) Monocytes (%) (Auto) 7.2 % (0.0-12.0) Eosinophils (%) (Auto) 2.0 % (0.0-7.0) Basophils (%) (Auto) 0.6 % (0.0-2.0) Neutrophils # (Auto) 5.8 10 ^3/uL (1.6-8.6) Lymphocytes # (Auto) 1.0 10 ^3/uL (0.4-5.4) Monocytes # (Auto) 0.5 10 ^3/uL (0-1.3) Eosinophils # (Auto) 0.1 10 ^3/uL (0-0.8) Basophils # (Auto) 0 10 ^3/uL (0-0.2) Nucleated Red Blood Cells 0.4 % Sodium Level 133 mmol/L (136-145) Potassium Level 4.0 mmol/L (3.5-5.1) Chloride Level 98 mmol/L (98-107) Carbon Dioxide Level 28 mmol/L (20-31) Anion Gap 7 (5-15) Blood Urea Nitrogen < 5 mg/dL (9-23) Creatinine 0.66 mg/dL (0.700-1.30) Glomerular Filtration Rate Calc 105 mL/min (>90) BUN/Creatinine Ratio 7.6 (10.0-20.0) Serum Glucose 102 mg/dL (74-106) Calcium Level 9.5 mg/dL (8.7-10.4) Phosphorus Level 2.9 mg/dL (2.4-5.1) Magnesium Level 2.0 mg/dL (1.6-2.6) Total Bilirubin 1.7 mg/dL (0.2-1.0) Aspartate Amino Transferase (AST) 53 U/L (13-40) Alanine Aminotransferase (ALT) 38 U/L (7-40) Alkaline Phosphatase 84 U/L (46-116) Total Protein 8.5 g/dL (5.7-8.2) Albumin 4.6 g/dL (3.2-4.8) Influenza Type A Antigen Negative (Negative) Influenza Type B Antigen Negative (Negative) SARS-CoV-2 Antigen (Rapid) Negative (NEGATIVE) Urine Color Light-yellow (Yellow) Urine Clarity Clear (Clear) Urine pH 6.5 (5.0-9.0) Urine Specific [place] 1.006 (1.001-1.035) Urine Protein Negative (Negative) Urine Ketones Negative (Negative) Urine Blood Negative /uL (Negative) Urine Nitrite Negative (Negative) Urine Bilirubin Negative (Negative) Urine Urobilinogen Normal mg/dL (Negative) Urine Leukocyte Esterase Negative /uL (Negative) Urine RBC None seen /hpf (0 - 3) Urine Microscopic WBC 6 /HPF (0-3) Urine Squamous Epithelial Cells None seen /hpf (<5) Urine Bacteria None seen /hpf (None Seen) Urine Glucose Normal mg/dL (Normal) Urine Opiates Screen Neg (NEGATIVE) Urine Fentanyl Screen Neg (NEGATIVE) Urine Barbiturates Screen Neg (NEGATIVE) Urine Phencyclidine Screen Neg (NEGATIVE) Urine Amphetamines Screen Neg (NEGATIVE) Urine Benzodiazepines Screen Neg (NEGATIVE) Urine Cocaine Screen Neg (NEGATIVE) Urine Cannabinoids Screen Neg (NEGATIVE) Test 10/09/24 03:44 10/08/24 21:30 10/08/24 20:15 Plasma/Serum Blood Alcohol 20.0 mg/dL (<10) Troponin I High Sensitivity < 3 ng/L (</=54) Lipase 54 U/L (12-53) Other Laboratory Tests 10/10/24 10:42 10/10/24 09:23 Brief Hx & Hospital Course: Brief history: Kate Vargas a 64-year-old male with past medical history of hypertension, COPD, anxiety, and alcohol abuse. The patient visit the ED with a chief complaint of 2 days of intermittent abdominal pain, cramp-like, localized right upper quadrant & epigastric region. Also complained of pain in chest and back. The patient reports concomitant shortness of breath, dry cough, and nasal congestion. The patient denies nausea, vomiting, diarrhea, headache, palpitation, sick contacts, recent travel or other symptoms. Hospital course: He was admitted along the lines of acute exacerbation of COPD. Managed with IV azithromycin, med neb treatment, pain control. Initial CXR revealed: Diffuse bilateral pleural plaque limiting evaluation of subadjacent lungs. Focal consolidation is not entirely excluded. Toxicology screen positive for alcohol use, managed with CIWA protocol. His symptoms have resolved now. He is stable for discharge. Discharge Diagnosis: Acute exacerbation of COPD, due to pneumonia Gram-negative, Gram-positive, possible Acute gastritis, possible Acute alcohol intoxication, possible Chest pain, ruled out ACS Troponin WNL Hypernatremia Elevated liver enzymes Pancreatitis, ruled out Hiatal hernia, CT finding Duodenal diverticulum, CT finding Discharge plan: Please follow-up with PCP in 1 week. Please follow with GI as outpatient Please continue Azithromycin (Zithromax Tablet) 250 Mg Tb for 2 days Please continue Prednisone 20 Mg Tab for 2 days Continue Pantoprazole Sodium Sesquihydr (Protonix) 40 Mg Tab daily for 1 month Continue Sucralfate (Carafate Susp) 1 Gm/10 Ml Ss 3 times daily for 1 month Operations or Procedures CT CT AB PEL WO CON-NO ORAL OR IV History: Abdominal pain, elevated Lipase, R/O pancreatitis Comparison Study: ABDOMEN LIMITED on DOS: 08/26/20 TECHNIQUE: Multidetector CT of the abdomen and pelvis was performed from lung bases to pubic symphysis. Imaging was performed without IV contrast. Axial, coronal and sagittal multiplanar reformats were obtained from the axial data set by the technologist. Radiation optimization: All CT scans at this facility use at least one of these dose optimization techniques: automated exposure control mA and/or kV adjustment per patient size (includes targeted exams where dose is matched to clinical indication) or iterative reconstruction. Radiation Dose Information: CT Dose: CTDI volume is 5.12 mGy. Dose-length product is 3.92 mGy*cm FINDINGS: Evaluation of solid organs is limited due to lack of intravenous contrast use. Imaged portions of the lung bases demonstrate marked pleural calcifications on the right. Diffuse interstitial thickening. There is a small to moderate hiatal hernia. Liver, gallbladder, spleen and pancreas appear unremarkable. There is a air-filled 2.5 cm lucency along the pancreatic head which has the appearance of a diverticulum of the 2nd portion of the duodenum. Kidneys appear symmetric without hydronephrosis. There is no evidence of bowel obstruction. Small amount of free fluid versus cystocele in the posterior perirectal space. Severe degenerative changes of the lumbar spine without suspicious osseous lesion. IMPRESSION: 1. No acute abdominal or pelvic finding. 2. Duodenal diverticulum. 3. Marked pleural calcifications -- Single frontal view of the chest was obtained Comparison: CT CHEST WITHOUT CONTRAST on DOS: 09/10/22, XY CHEST PORTABLE on DOS: 09/09/22, CHEST XRAY 1 VIEW on DOS: 11/29/20, CHEST WITHOUT CONTRAST on DOS: 08/27/20 FINDINGS: Lines and Tubes: None Lungs/pleura: Diffuse bilateral pleural plaque limiting evaluation of subadjacent lungs. Focal consolidation is not entirely excluded. No pleural effusion. No pneumothorax. Cardiomediastinal contours: Unremarkable Bones: No acute osseous abnormality. IMPRESSION: 1. Diffuse bilateral pleural plaque limiting evaluation of subadjacent lungs. Focal consolidation is not entirely excluded. Condition at Discharge: Stable Final Diagnosis/Problems List Acute exacerbation of COPD, due to pneumonia Gram-negative, Gram-positive,possible Acute gastritis, possible Acute alcohol intoxication, possible Chest pain, ruled out ACS Hypernatremia Elevated liver enzymes Pancreatitis, ruled out Hiatal hernia, CT finding Duodenal diverticulum, CT finding Discharge Disposition: Home Discharge Instruct/Medications Diet: Cardiac 2g Na,low cholest Diet comment: avoid spicy and citric food Activity: No Restrictions, As Tolerated Follow Up/Referral: Discharge clinic PCp within 7 day GI follow up with PCP Medications: as per EHR New medications sent New Medications: Azithromycin (Zithromax Tablet) 250 Mg Tb 250 MG PO DAILY for 2 Days, #2 TAB Pantoprazole Sodium Sesquihydr (Protonix) 40 Mg Tab 40 MG PO DAILY, #30 TAB Prednisone (Prednisone) 20 Mg Tab 40 MG PO DAILY for 2 Days, MG Sucralfate (Carafate Susp) 1 Gm/10 Ml Ss 10 ML PO QID for 30 Days, #1200 ML 3 Refills Care Plan: Please follow-up with PCP in 1 week. Please follow with GI as outpatient Please continue Azithromycin (Zithromax Tablet) 250 Mg Tb for 2 days Please continue Prednisone 20 Mg Tab for 2 days Continue Pantoprazole Sodium Sesquihydr (Protonix) 40 Mg Tab daily for 1 month Continue Sucralfate (Carafate Susp) 1 Gm/10 Ml Ss 3 times daily for 1 month Scheduled Azithromycin (Zithromax Tablet), 250 MG PO DAILY Pantoprazole Sodium Sesquihydr (Protonix), 40 MG PO DAILY Prednisone (Prednisone), 40 MG PO DAILY Sucralfate (Carafate Susp), 10 ML PO QID Discharge Statement: "Patient was advised to return to the ER or call 911 if any headaches, dizziness, shortness of breath, chest pain, abdominal pain, bleeding, fevers, or worsening of medical condition. Patient was counseled about treatment plan, medications, possible side effects, patientverbalized understanding. All questions were answered to the best of my ability. This discharge took greater then 30 minutes in planning, reviewing documentation, counseling the patient, and discussing with other team members." ASSESSMENT ASSESSMENT Assessment Acute exacerbation of COPD, due to pneumonia Gram-negative, Gram- positive,possibleAcute gastritis, possibleAcute alcohol intoxication, possibleChest pain, ruled out ACSTroponin WNLHypernatremiaElevated liver enzymesPancreatitis, ruled outHiatal hernia, CT findingDuodenal diverticulum, CT finding JEROME MILAN RESIDENT Oct 11, 2024 12:27
[2024-10-11] MEDS: MAGNESIUM OXIDE 400 MG TAB PO SCH (15:15)
[2024-10-11] MEDS: MORPHINE SULFATE INJ 2 MG/ml SYRG IV PRN (15:16)
--- NOTE | 2024-10-11 16:33 | DVH ---
Exam: XY KUB ABDOMEN SINGLE VIEW Indication: abdominal pain Comparison: CT CT AB PEL WO CON-NO ORAL OR IV on DOS: 10/09/24, ABDOMEN LIMITED on DOS: 08/26/20 Technique: 1 radiographic views of the abdomen. Findings: Distended stomach. Nonobstructive bowel gas pattern noted. There is no definite evidence for pneumoperitoneum. No abnormal calcifications noted. Impression: Nonobstructive bowel gas pattern noted.
[2024-10-11] MEDS: MULTIPLE VITAMINS W/ MINERALS TAB PO ONE (16:44)
[2024-10-11] MEDS: THIAMINE HCL 100 MG TAB PO ONE (16:44)
[2024-10-11] MEDS: FOLIC ACID 1 MG TAB PO ONE (16:44)
[2024-10-11] MEDS: PANTOPRAZOLE 40 MG/10 ML VIAL INJ IV ONE ×2 (16:45→21:04)
[2024-10-11] MEDS: guaiFENesin-DM 100/10mg/5ml SYR PO PRN (18:00)
[2024-10-11] MEDS ORDERED: HYDROcodone-ACET 5/325MG TAB PO PRN (18:15)
[2024-10-11] MEDS: KETOROLAC TROMETH 30 MG/ML 1ML VIAL IV ONE (20:41)
[2024-10-11] MEDS: LACTATED RINGER'S 1,000 ML IV SCH (21:04)
[2024-10-11] MEDS: SUCRALFATE 1 GM/10 ML ORAL SUSP PO SCH (21:05)
[2024-10-12 01:00] VITALS: BP 129/75; PULSE 83; RESP 19; TEMP 98.2; O2SAT 98
[2024-10-12 05:00] VITALS: BP 134/80; PULSE 82; RESP 19; TEMP 98.2; O2SAT 97
--- NOTE | 2024-10-12 06:36 | DVHPNRES ---
Progress Note Date Seen: Oct 11, 2024 Resident Creating Document: JEROME MILAN RESIDENT Medical Necessity Reason Pt with a Central, PICC or Fol: No Subjective Review of Systems Kate Vargas a 64-year-old male with past medical history of hypertension, COPD, anxiety, and alcohol abuse. The patient visit the ED with a chief complaint of 2 days of intermittent abdominal pain, cramp-like, localized right upper quadrant & epigastric region. Also complained of pain in chest and back. The patient reports concomitant shortness of breath, dry cough, and nasal congestion. The patient denies nausea, vomiting, diarrhea, headache, palpitation, sick contacts, recent travel or other symptoms. Social history: 1 pack per day smoking, alcohol use 2 beers twice weekly, no recreational drug use. Lives in home with sister. Home medication: no ROS: Constitutional: Denies weight loss, fever and chills. HEENT: Denies changes in vision and hearing. Respiratory: shortness of breath and dry cough Cardiovascular: Chest discomfort GI: Abdominal pain, no nausea, vomiting and diarrhea. : Denies dysuria and urinary frequency. Musculoskeletal: Denies myalgias and joint pain Skin: Denies rash and pruritus. Neurological: Denies dizziness, headache, vision or hearing problems Patient was examined at bedside today. His vitals show high blood pressure. Today, he was complaining of pain in the left upper quadrant, Labs show lipase and creatinine went up. We will continue monitoring and managing Objective vital signs Vital Sign Date Time Temp Pulse Resp B/P (MAP) Pulse Ox O2 Delivery O2 Flow Rate FiO2 10/12/24 05:00 98.2 82 19 134/80 (98) 97 98.2 10/11/24 20:00 Room Air* 0 21 Total Intake and Output 10/11/24 10/11/24 10/12/24 15:00 23:00 07:00 Intake Total 250 ml 1260 ml 850 ml Balance 250 ml 1260 ml 850 ml medications Current Medications Medications Dose Ordered Sig/Sofía Route Start Time Stop Time Status Last Admin Dose Admin Ondansetron HCl 4 mg Q4HP PRN IV 10/08/24 23:45 10/11/24 03:05 4 MG Azithromycin 250 ml @ 125 mls/hr DAILY IV 10/09/24 10:00 10/11/24 09:29 125 MLS/HR Albuterol 2.5 mg Q4HP NEB 10/09/24 03:00 Cancel Ipratropium [place] 0.5 mg Q4HP PRN NEB 10/09/24 02:30 10/11/24 12:50 0.5 MG Albuterol 2.5 mg Q4HPRN PRN NEB 10/09/24 05:45 10/11/24 12:50 2.5 MG Lorazepam 1 mg Q2HPRN PRN IV 10/09/24 09:30 10/10/24 15:26 1 MG Magnesium Oxide 400 mg BID PO 10/09/24 11:45 10/11/24 21:05 400 MG Prednisone 40 mg DAILY PO 10/11/24 10:00 10/11/24 09:29 40 MG Al Hydrox/Mg Hydrox/Simethicone 30 ml Q8HR PO 10/10/24 14:00 10/12/24 05:16 30 ML Multivitamins/ Minerals 1 tab DAILY PO 10/12/24 10:00 Folic Acid 1 mg DAILY PO 10/12/24 10:00 Thiamine HCl 100 mg DAILY PO 10/12/24 10:00 Guaifenesin/ Dextromethorphan 10 ml Q4HP PRN PO 10/11/24 16:45 10/11/24 18:00 10 ML Pantoprazole Sodium 40 mg DAILY IV 10/12/24 10:00 Lactated Ringer's 1,000 ml @ 150 mls/hr Q6H40M IV 10/11/24 18:15 10/12/24 00:55 150 MLS/HR Sucralfate 1 gm TID@0600,1130,2200 PO 10/11/24 22:00 10/12/24 05:16 1 GM Acetaminophen/ Hydrocodone Bitart 1 tab Q6HPRN PRN PO 10/11/24 18:15 Examination General: Patient alert and oriented in person, place and time. Patient following commands. HEENT: Normocephalic, atraumatic Respiratory/pulmonary: Wheeze heard on the left lower lung Cardiovascular: Normal heart sounds S1 and S2 with no associated murmurs Abdomen: Mild Abdominal tenderness in epigastrium and right upper quadrant. Extremities: There is no peripheral edema present at the lower extremities. Skin: No rashes or pruritus, there is no sacral edema present at this time. Neurological: Intact cranial nerves with no focal neurologic deficits laboratory and microbiology Laboratory Tests 10/10/24 10:42 10/10/24 09:23 Test 10/10/24 09:23 Range/Units Serum Glucose 102 74-106 mg/dL Microbiology Date/Time Source Procedure Growth Status 10/09/24 19:05 Nose MRSA Screen - Final Complete 10/09/24 15:00 Voided Urine Urine Culture - Preliminary Resulted 10/09/24 08:45 Sputum Expectorated Sputum Gram Stain - Final Resulted 10/09/24 08:45 Sputum Expectorated Sputum Respiratory Culture - Preliminary Resulted Problem List/Assessment/Plan Problem List/Assessment/Plan Acute exacerbation of COPD, due to pneumonia Gram-negative, Gram-positive, possible Continue IV azithromycin, discontinued ceftriaxone Managed with med neb treatment Continue pain management CXR revealed: Diffuse bilateral pleural plaque limiting evaluation of subadjacent lungs. Focal consolidation is not entirely excluded. Acute gastritis, possible Continue famotidine, aluminum and magnesium hydroxide. Acute alcohol intoxication, possible Toxicology reveals serum alcohol 20 Continue folic acid, thiamine, banana bag Continue CIWA protocol Chest pain, ruled out ACS EKG revealed: Sinus tachycardia, multiform ventricular premature complexes, ST elevation suggests acute pericarditis Troponin WNL Hypernatremia Labs show sodium 134 Continue monitoring and managing Elevated liver enzymes labs show elevated AST Pancreatitis, ruled out Lipase borderline elevated CT abdomen revealed no acute abdominal pathology Hiatal hernia, CT finding Duodenal diverticulum, CT finding DIET: Regular GI PROPHYLAXIS: Pepcid CODE STATUS: Goals of care discussed with patient at bedside for more than 25 minutes. Full code DISPOSITION: Med/surge Patient's status and plan discussed with the patient. Case discussed with Dr. Gaston. Plan discussed with: Patient Date of Service: Oct 11, 2024 Billing Provider: DES GASTON MD Common Visit Codes: [id number] INP/OBS CARE(HIGH) JEROME MILAN RESIDENT Oct 12, 2024 06:36 DES GASTON MD Oct 14, 2024 21:03
[2024-10-12 08:00] VITALS: PULSE 65; RESP 17
[2024-10-12 08:30] VITALS: BP 143/83; PULSE 94; RESP 18; TEMP 97.5; O2SAT 97
[2024-10-12] MEDS: MULTIPLE VITAMINS W/ MINERALS TAB PO SCH (08:53)
[2024-10-12] MEDS: FOLIC ACID 1 MG TAB PO SCH (08:53)
[2024-10-12] MEDS: THIAMINE HCL 100 MG TAB PO SCH (08:53)
[2024-10-12] MEDS: PANTOPRAZOLE 40 MG/10 ML VIAL INJ IV SCH (08:54)
[2024-10-12 10:00] VITALS: O2SAT 95
--- NOTE | 2024-10-12 16:30 | DVHDSRES ---
Discharge Summary Date of Admission Resident Creating Document: JEROME MILAN RESIDENT Oct 08, 2024 at 23:31 Date of Discharge: Oct 11, 2024 Labs/Diagnostic Data: Laboratory Results Test 10/11/24 19:53 10/11/24 15:19 10/10/24 10:42 10/10/24 09:23 Erythrocyte Sedimentation Rate 9 mm/hr (0-20) C-Reactive Protein High Sensitivity 0.07 mg/dL (<1.0) Lipase 72 U/L (12-53) White Blood Count 7.6 10^3/uL (4.4-10.8) Red Blood Count 5.13 10^6/uL (4.5-5.90) Hemoglobin 17.7 g/dL (13.5-17.5) Hematocrit 49.5 % (41.0-53.0) Mean Corpuscular Volume 96.3 fL (80.0-100.0) Mean Corpuscular Hemoglobin 34.5 pg (28.0-32.0) Mean Corpuscular Hemoglobin Concent 35.8 g/dL (32.0-36.0) Red Cell Distribution Width 12.9 % (11.8-14.3) Platelet Count 263 10^3/uL (140-450) Mean Platelet Volume 6.2 fL (6.9-10.8) Neutrophils (%) (Auto) 77.1 % (37.0-80.0) Lymphocytes (%) (Auto) 13.1 % (10.0-50.0) Monocytes (%) (Auto) 7.2 % (0.0-12.0) Eosinophils (%) (Auto) 2.0 % (0.0-7.0) Basophils (%) (Auto) 0.6 % (0.0-2.0) Neutrophils # (Auto) 5.8 10 ^3/uL (1.6-8.6) Lymphocytes # (Auto) 1.0 10 ^3/uL (0.4-5.4) Monocytes # (Auto) 0.5 10 ^3/uL (0-1.3) Eosinophils # (Auto) 0.1 10 ^3/uL (0-0.8) Basophils # (Auto) 0 10 ^3/uL (0-0.2) Nucleated Red Blood Cells 0.4 % Sodium Level 133 mmol/L (136-145) Potassium Level 4.0 mmol/L (3.5-5.1) Chloride Level 98 mmol/L (98-107) Carbon Dioxide Level 28 mmol/L (20-31) Anion Gap 7 (5-15) Blood Urea Nitrogen < 5 mg/dL (9-23) Creatinine 0.66 mg/dL (0.700-1.30) Glomerular Filtration Rate Calc 105 mL/min (>90) BUN/Creatinine Ratio 7.6 (10.0-20.0) Serum Glucose 102 mg/dL (74-106) Calcium Level 9.5 mg/dL (8.7-10.4) Phosphorus Level 2.9 mg/dL (2.4-5.1) Magnesium Level 2.0 mg/dL (1.6-2.6) Total Bilirubin 1.7 mg/dL (0.2-1.0) Aspartate Amino Transferase (AST) 53 U/L (13-40) Alanine Aminotransferase (ALT) 38 U/L (7-40) Alkaline Phosphatase 84 U/L (46-116) Total Protein 8.5 g/dL (5.7-8.2) Albumin 4.6 g/dL (3.2-4.8) Test 10/09/24 17:10 10/09/24 06:27 10/09/24 03:44 10/08/24 21:30 Influenza Type A Antigen Negative (Negative) Influenza Type B Antigen Negative (Negative) SARS-CoV-2 Antigen (Rapid) Negative (NEGATIVE) Urine Color Light-yellow (Yellow) Urine Clarity Clear (Clear) Urine pH 6.5 (5.0-9.0) Urine Specific [place] 1.006 (1.001-1.035) Urine Protein Negative (Negative) Urine Ketones Negative (Negative) Urine Blood Negative /uL (Negative) Urine Nitrite Negative (Negative) Urine Bilirubin Negative (Negative) Urine Urobilinogen Normal mg/dL (Negative) Urine Leukocyte Esterase Negative /uL (Negative) Urine RBC None seen /hpf (0 - 3) Urine Microscopic WBC 6 /HPF (0-3) Urine Squamous Epithelial Cells None seen /hpf (<5) Urine Bacteria None seen /hpf (None Seen) Urine Glucose Normal mg/dL (Normal) Urine Opiates Screen Neg (NEGATIVE) Urine Fentanyl Screen Neg (NEGATIVE) Urine Barbiturates Screen Neg (NEGATIVE) Urine Phencyclidine Screen Neg (NEGATIVE) Urine Amphetamines Screen Neg (NEGATIVE) Urine Benzodiazepines Screen Neg (NEGATIVE) Urine Cocaine Screen Neg (NEGATIVE) Urine Cannabinoids Screen Neg (NEGATIVE) Plasma/Serum Blood Alcohol 20.0 mg/dL (<10) Troponin I High Sensitivity < 3 ng/L (</=54) Other Laboratory Tests 10/10/24 10:42 10/10/24 09:23 Brief Hx & Hospital Course: Brief history: Kate Vargas a 64-year-old male with past medical history of hypertension, COPD, anxiety, and alcohol abuse. The patient visit the ED with a chief complaint of 2 days of intermittent abdominal pain, cramp-like, localized right upper quadrant & epigastric region. Also complained of pain in chest and back. The patient reports concomitant shortness of breath, dry cough, and nasal congestion. The patient denies nausea, vomiting, diarrhea, headache, palpitation, sick contacts, recent travel or other symptoms. Hospital course: He was admitted along the lines of acute exacerbation of COPD. Managed with IV azithromycin, med neb treatment, pain control. Initial CXR revealed: Diffuse bilateral pleural plaque limiting evaluation of subadjacent lungs. Focal consolidation is not entirely excluded. Toxicology screen positive for alcohol use, managed with CIWA protocol. His symptoms have resolved now. He is stable for discharge. Discharge Diagnosis: Acute exacerbation of COPD, due to pneumonia Gram-negative, Gram-positive, possible Acute gastritis, possible Acute alcohol intoxication, possible Chest pain, ruled out ACS Troponin WNL Hypernatremia Elevated liver enzymes Pancreatitis, ruled out Hiatal hernia, CT finding Duodenal diverticulum, CT finding Discharge plan: Please follow-up with PCP in 1 week. Please follow with GI as outpatient Please continue Azithromycin (Zithromax Tablet) 250 Mg Tb for 2 days Please continue Prednisone 20 Mg Tab for 2 days Continue Pantoprazole Sodium Sesquihydr (Protonix) 40 Mg Tab daily for 1 month Continue Sucralfate (Carafate Susp) 1 Gm/10 Ml Ss 3 times daily for 1 month Operations or Procedures CT CT AB PEL WO CON-NO ORAL OR IV History: Abdominal pain, elevated Lipase, R/O pancreatitis Comparison Study: ABDOMEN LIMITED on DOS: 08/26/20 TECHNIQUE: Multidetector CT of the abdomen and pelvis was performed from lung bases to pubic symphysis. Imaging was performed without IV contrast. Axial, coronal and sagittal multiplanar reformats were obtained from the axial data set by the technologist. Radiation optimization: All CT scans at this facility use at least one of these dose optimization techniques: automated exposure control mA and/or kV adjustment per patient size (includes targeted exams where dose is matched to clinical indication) or iterative reconstruction. Radiation Dose Information: CT Dose: CTDI volume is 5.12 mGy. Dose-length product is 3.92 mGy*cm FINDINGS: Evaluation of solid organs is limited due to lack of intravenous contrast use. Imaged portions of the lung bases demonstrate marked pleural calcifications on the right. Diffuse interstitial thickening. There is a small to moderate hiatal hernia. Liver, gallbladder, spleen and pancreas appear unremarkable. There is a air-filled 2.5 cm lucency along the pancreatic head which has the appearance of a diverticulum of the 2nd portion of the duodenum. Kidneys appear symmetric without hydronephrosis. There is no evidence of bowel obstruction. Small amount of free fluid versus cystocele in the posterior perirectal space. Severe degenerative changes of the lumbar spine without suspicious osseous lesion. IMPRESSION: 1. No acute abdominal or pelvic finding. 2. Duodenal diverticulum. 3. Marked pleural calcifications -- Single frontal view of the chest was obtained Comparison: CT CHEST WITHOUT CONTRAST on DOS: 09/10/22, XY CHEST PORTABLE on DOS: 09/09/22, CHEST XRAY 1 VIEW on DOS: 11/29/20, CHEST WITHOUT CONTRAST on DOS: 08/27/20 FINDINGS: Lines and Tubes: None Lungs/pleura: Diffuse bilateral pleural plaque limiting evaluation of subadjacent lungs. Focal consolidation is not entirely excluded. No pleural effusion. No pneumothorax. Cardiomediastinal contours: Unremarkable Bones: No acute osseous abnormality. IMPRESSION: 1. Diffuse bilateral pleural plaque limiting evaluation of subadjacent lungs. Focal consolidation is not entirely excluded. Condition at Discharge: Stable Final Diagnosis/Problems List Acute exacerbation of COPD, due to pneumonia Gram-negative, Gram-positive,possible Acute gastritis, possible Acute alcohol intoxication, possible Chest pain, ruled out ACS Hypernatremia Elevated liver enzymes Pancreatitis, ruled out Hiatal hernia, CT finding Duodenal diverticulum, CT finding Discharge Disposition: Home Discharge Instruct/Medications Diet: Cardiac 2g Na,low cholest Diet comment: avoid spicy and citric food Activity: No Restrictions, As Tolerated Follow Up/Referral: Discharge clinic PCp within 7 day GI follow up with PCP Medications: as per EHR New medications sent New Medications: Azithromycin (Zithromax Tablet) 250 Mg Tb 250 MG PO DAILY for 2 Days, #2 TAB Pantoprazole Sodium Sesquihydr (Protonix) 40 Mg Tab 40 MG PO DAILY, #30 TAB Prednisone (Prednisone) 20 Mg Tab 40 MG PO DAILY for 2 Days, MG Sucralfate (Carafate Susp) 1 Gm/10 Ml Ss 10 ML PO QID for 30 Days, #1200 ML 3 Refills Care Plan: Please follow-up with PCP in 1 week. Please follow with GI as outpatient Please continue Azithromycin (Zithromax Tablet) 250 Mg Tb for 2 days Please continue Prednisone 20 Mg Tab for 2 days Continue Pantoprazole Sodium Sesquihydr (Protonix) 40 Mg Tab daily for 1 month Continue Sucralfate (Carafate Susp) 1 Gm/10 Ml Ss 3 times daily for 1 month Scheduled Azithromycin (Zithromax Tablet), 250 MG PO DAILY Pantoprazole Sodium Sesquihydr (Protonix), 40 MG PO DAILY Prednisone (Prednisone), 40 MG PO DAILY Sucralfate (Carafate Susp), 10 ML PO QID Discharge Statement: "Patient was advised to return to the ER or call 911 if any headaches, dizziness, shortness of breath, chest pain, abdominal pain, bleeding, fevers, or worsening of medical condition. Patient was counseled about treatment plan, medications, possible side effects, patientverbalized understanding. All questions were answered to the best of my ability. This discharge took greater then 30 minutes in planning, reviewing documentation, counseling the patient, and discussing with other team members." ASSESSMENT ASSESSMENT Assessment Acute exacerbation of COPD, due to pneumonia Gram-negative, Gram- positive,possible Acute gastritis, possible Acute alcohol intoxication, possible Chest pain, ruled out ACS Hypernatremia Elevated liver enzymes Pancreatitis, ruled out Hiatal hernia, CT finding Duodenal diverticulum, CT finding Date of Service: Oct 12, 2024 Billing Provider: DES GASTON MD Common Visit Codes: 84447-MVS/OBS DISCH DAY >30min JEROME MILAN Oct 12, 2024 16:30 DES GASTON MD Oct 14, 2024 21:12
== END 2024-10-12 16:00 | disposition home or self-care (01) | DRG 391 ==
LOC: ER 19:43 → EDBD 19:43 → EDUNIT# 19:43 → OVERFLOW 23:31 → EAST 10-10 18:06
PROVIDERS: ADMIT Student in an Organized Health Care Education/Training Program; ATTEND Student in an Organized Health Care Education/Training Program
DX: K29.00 Acute gastritis without bleeding (principal); J15.69 Pneumonia due to other Gram-negative bacteria; J15.9 Unspecified bacterial pneumonia; J44.1 Chronic obstructive pulmonary disease with (acute) exacerbation; E87.0 Hyperosmolality and hypernatremia; K44.9 Diaphragmatic hernia without obstruction or gangrene; F10.129 Alcohol abuse with intoxication, unspecified; I10 Essential (primary) hypertension; F41.9 Anxiety disorder, unspecified; F17.210 Nicotine dependence, cigarettes, uncomplicated; Z20.822 Contact with and (suspected) exposure to COVID-19; K57.10 Diverticulosis of small intestine without perforation or abscess without bleeding; Z71.41 Alcohol abuse counseling and surveillance of alcoholic; Z79.899 Other long term (current) drug therapy; Y90.1 Blood alcohol level of 20-39 mg/100 ml
CPT/HCPCS: 36415; 71045; 74018; 74176; 76705; 80053; 80307; 80320; 81001; 83690; 83735; 84100; 84484; 85025; 85652; 86141; 87070; 87077; 87081; 87086; 87186; 87205; 87426; 87804; 93005; 93306; 94640; G0378; J1885; J2405; J2470; J7060